=== PATIENT | female | born 1990 | race Caucasian/White ===

== ENCOUNTER 2017-07-31 14:50 | Inpatient (IN) | payer OTHER ==
[2017-07-31 16:22] VITALS: BMI 21.2
--- NOTE | 2017-07-31 18:51 | HP ---
COWS - Scale Resting Pulse: 2= [place] 101-120 Sweatin=Flushed/Facial Moisture Restless Observation: 1= Difficult to Sit Still Pupil Size: 1= Pupils >than Normal Bone or Joint Aches: 2= Severe Diffuse Aches Runny Nose/ Eye Tearin= Runny Nose/Eyes GI Upset > 30mins: 1= Stomach Cramp Tremor Observation: 2= Slight Tremor Visible Yawning Observation: 1= 1-2x During Session Anxiety or Irritability: 1=Feels Anxious/Irritable Goose Flesh Skin: 3=Piloerection COWS Score: 18 CIWA Score - CIWA Score Nausea/Vomitin Muscle Tremors: 2 Anxiety: 2 Agitation: 0-Normal Activity Paroxysmal Sweats: 1-Minimal Palms Moist Orientation: 1-Uncertain about Date Tacttile Disturbances: 2-Mild Itch/Numbness/Burn Auditory Disturbances: 1-Very Mild Visual Disturbances: 1-Very Mild Sensitivity Headache: 2-Mild CIWA-Ar Total Score: 14 Admission ROS S - HPI Chief Complaint: WITHDRAWAL SYMPTOMS Allergies/Adverse Reactions: Allergies Allergy/AdvReac Type Severity Reaction Status Date / Time egg Allergy Severe Hives Verified 07/31/17 16:53 Fish Containing Products Allergy Unknown Swelling Verified 07/31/17 16:53 [Fish Product Derivatives] lactose AdvReac Severe diarrhea Verified 07/31/17 17:19 mayonnaise Allergy Severe Hives Uncoded 07/31/17 17:19 NKDA Allergy Uncoded 07/31/17 16:53 History of Present Illness: 27 Y.O. WOMAN WITH AN EXTENSIVE HISTORY OF OPIOID ALCOHOL DEPENDENCE IS HERE SEEKING DETOX SERVICES. REPORTS SHE SOUGHT DETOX EARLIER THIS YEAR AT ANOTHER FACILITY. REPORTS HAVING A HISTORY OF 2 YEAR PERIOD OF BEING CLEAN. Exam Limitations: No Limitations - Ebola screening Have you traveled outside of the country in the last 21 days: No Have you had contact with anyone from an Ebola affected area: No Have you been sick,other than usual withdrawal symptoms: No Do you have a fever: No - Review of Systems Constitutional: Chills, Diaphoresis, Loss of Appetite, Unintentional Wgt. Loss EENT: reports: Tearing, Nose Congestion Respiratory: reports: Shortness of Breath Cardiac: reports: Lightheadedness GI: reports: No Symptoms Reported : reports: No Symptoms Reported Musculoskeletal: reports: Back Pain, Neck Pain Integumentary: reports: Other (ACNE) Neuro: reports: Headache, Numbness, Tingling Endocrine: reports: No Symptoms Reported Hematology: reports: No Symptoms Reported Psychiatric: reports: Anxious, Depressed Other Systems: Reviewed and Negative Patient History - Patient Medical History Hx Anemia: No Hx Asthma: No Hx Chronic Obstructive Pulmonary Disease (COPD): No Hx Cancer: No Hx Cardiac Disorders: No Hx Congestive Heart Failure: No Hx Hypertension: No Hx Hypercholesterolemia: No Hx Pacemaker: No HX Cerebrovascular Accident: No Hx Seizures: Yes (alcohol related x2-last episode was in 2015) Hx Dementia: No Hx Diabetes: No Hx Gastrointestinal Disorders: Yes (acid reflux) Hx Liver Disease: No Hx Genitourinary Disorders: No Hx Sexually Transmitted Disorders: No Hx Renal Disease (ESRD): No Hx Thyroid Disease: No Hx Human Immunodeficiency Virus (HIV): No Hx Hepatitis C: No Hx Depression: Yes Hx Suicide Attempt: No Hx Bipolar Disorder: No Hx Schizophrenia: No - Patient Surgical History Past Surgical History: No Hx Neurologic Surgery: No Hx Cataract Extraction: No Hx Cardiac Surgery: No Hx Lung Surgery: No Hx Breast Surgery: No Hx Breast Biopsy: No Hx Abdominal Surgery: No Hx Appendectomy: No Hx Cholecystectomy: No Hx Genitourinary Surgery: No Hx Section: Yes (2010 X1) Hx Orthopedic Surgery: No Anesthesia Reaction: No - PPD History Previous Implant?: Yes Documented Results: Negative w/proof Implanted On Prior R Admission?: Yes Date: 11/22/15 Results: 0 mm PPD to be Administered?: Yes - Reproductive History Patient is a Female of Child Bearing Age (11 -55 yrs old): Yes Last Menstrual Period: 03/26/16 Patient : No - Smoking Cessation Smoking history: Current every day smoker Have you smoked in the past 12 months: Yes Aproximately how many cigarettes per day: 40 Hx Chewing Tobacco Use: No Initiated information on smoking cessation: Yes 'Breaking Loose' booklet given: 07/31/17 - Substance & Tx. History Hx Alcohol Use: Yes Hx Substance Use: Yes Substance Use Type: Alcohol, Heroin, Marijuana Hx Substance Use Treatment: Yes (DETOX: 08/2016; REHAB: DOES NOT RECAL ) - Substances Abused Heroin Route: Injection Frequency: Daily Amount used: 20-25 bags Age of first use: 20 Date of Last Use: 07/30/17 Alcohol-whisky/beer Route: Oral Frequency: Daily Amount used: 1-2 pts./1-2 6 pks. Age of first use: 7 Date of Last Use: 07/30/17 Marijuana Route: Smoking Frequency: 1-2 times per week Amount used: $20-40 Age of first use: 13 Date of Last Use: 07/29/17 Family Disease History - Family Disease History Family Disease History: Diabetes: Father (HTN,LUNGS,ALCOHOL & COCAINE), Heart Disease: Father, CA: Father, Other: Father Admission Physical Exam [facility] - Vital Signs Vital Signs: Vital Signs - 24 hr 07/31/17 16:16 Temperature 97.9 F Pulse Rate 110 H Respiratory 18 Rate Blood Pressure 113/77 - Physical General Appearance: Yes: Disheveled, Tremorous, Irritable, Sweating, Anxious HEENTM: Yes: Hearing grossly Normal, Normal ENT Inspection, Normocephalic, Normal Voice Respiratory: Yes: Chest Non-Tender, Lungs Clear, Normal Breath Sounds, No Respiratory Distress, No Accessory Muscle Use Neck: Yes: No masses,lesions,Nodules, Trachea in good position Breast: Yes: Breast Exam Deferred Cardiology: Yes: Regular Rhythm, Tachycardia Abdominal: Yes: Normal Bowel Sounds, Non Tender Genitourinary: Yes: Within Normal Limits Back: Yes: Normal Inspection Musculoskeletal: Yes: full range of Motion Extremities: Yes: Normal Capillary Refill, Normal Inspection, Normal Range of Motion, Non-Tender Neurological: Yes: Fully Oriented, Alert, Normal Mood/Affect, Normal Response Integumentary: Yes: Dry, Warm, Track Diaz, Other (ACNE SCARS) Lymphatic: Yes: Within Normal Limits - Diagnostic (1) Alcohol dependence with uncomplicated withdrawal Current Visit: Yes Status: Chronic (2) Cannabis dependence Current Visit: Yes Status: Chronic (3) Cocaine dependence, uncomplicated Current Visit: Yes Status: Chronic (4) Nicotine dependence Current Visit: Yes Status: Chronic Qualifiers: Nicotine product type: cigarettes Substance use status: uncomplicated Qualified Code(s): F17.210 - Nicotine dependence, cigarettes, uncomplicated (5) Opioid dependence with withdrawal Current Visit: Yes Status: Chronic Cleared for Admission [facility] - Detox or Rehab [facility] Level of Care: Medically Managed Detox Regimen/Protocol: Methadone/Librium [facility] Breath Alcohol Content Breath Alcohol Content: 0 Urine Pregancy Test - Result Urine Test Results: Negative- NO Line Present Urine Drug Screen - Results Drug Screen Negative: No Urine Drug Screen Results: THC-Marijuana, PATTI-Cocaine, OPI-Opiates, MTD- Methadone, OXY-Oxycodone
[2017-07-31] MEDS ORDERED: P-EPHED 60MG/TRIPROLIDI 2.5MG TABLET PO PRN (19:32)
[2017-07-31] MEDS ORDERED: LOPERAMIDE HCL 2 MG CAPSULE PO PRN (19:32)
[2017-07-31] MEDS ORDERED: MENTHOL/PHENOL 1 EACH UD MM PRN (19:32)
[2017-07-31] MEDS ORDERED: METHADONE HCL 10 MG TABLET (FOR DETOX USE ONLY) PO ONE ×2 (19:32→23:00)
[2017-07-31] MEDS ORDERED: chlordiazePOXIDE HCL 25 MG CAPSULE PO ONE (19:32)
[2017-07-31] MEDS ORDERED: ACETAMINOPHEN 325 MG TABLET (FP) PO PRN (19:32)
[2017-07-31] MEDS ORDERED: guaiFENesin/D-METHORPHAN HB 10 ML UNIT-DOSE CUPS PO PRN (19:32)
[2017-07-31] MEDS ORDERED: MAGNESIUM CITRATE 300 ML BOTTLE PO PRN (19:32)
[2017-07-31] MEDS ORDERED: chlordiazePOXIDE HCL 25 MG CAPSULE PO PRN (19:32)
[2017-07-31] MEDS ORDERED: MAGNESIUM HYDROX 2400MG/30ML ORAL SUSPENSION 30 ML CUP PO PRN (19:32)
[2017-07-31] MEDS ORDERED: MAG HYDROX/AL HYDROX/SIMETH 30 ML UNIT-DOSE CUP PO PRN (19:32)
[2017-07-31] MEDS: NICOTINE POLACRILEX 4 MG GUM BC PRN ×2 (20:03→22:40)
[2017-07-31 21:57] LABS: URINE APPEARANCE TURBID; URINE BILIRUBIN NEGATIVE (NEGATIVE); URINE BLOOD NEGATIVE (NEGATIVE); URINE COLOR AMBER; URINE GLUCOSE (UA) NEGATIVE (NEGATIVE); URINE KETONE TRACE (NEGATIVE); URINE LEUK ESTERASE TRACE (NEGATIVE); URINE NITRITE NEGATIVE (NEGATIVE); URINE UROBILINOGEN 4.0 E.U/dl mg/dL (0.2-1.0)
[2017-07-31 22:02] LABS: URINE PROTEIN 1+ (NEGATIVE)
[2017-07-31 22:05] LABS: CALCIUM OXALATE CRYSTALS MODERATE /hpf (NONE SEEN); URINE BACTERIA MODERATE /hpf (NONE SEEN); URINE MUCUS MANY; URINE RBC 4 /hpf (0-3); URINE WBC 31 /hpf (3-5)
[2017-07-31] MEDS: chlordiazePOXIDE HCL 25 MG CAPSULE PO SCH (22:37)
[2017-07-31] MEDS: THIAMINE HCL 100 MG TABLET (FP) PO SCH (22:37)
[2017-08-01] MEDS: chlordiazePOXIDE HCL 25 MG CAPSULE PO SCH ×4 (06:24→22:38)
[2017-08-01] MEDS ORDERED: METHADONE HCL 10 MG TABLET (FOR DETOX USE ONLY) PO SCH (10:00)
--- NOTE | 2017-08-01 10:41 | PN ---
S CIWA - CIWA Score Nausea/Vomitin Muscle Tremors: 3 Anxiety: 3 Agitation: 4-Moderately Restless Paroxysmal Sweats: 3 Orientation: 0-Oriented Tacttile Disturbances: 2-Mild Itch/Numbness/Burn Auditory Disturbances: 0-None Visual Disturbances: 0-None Headache: 1-Very Mild CIWA-Ar Total Score: 19 BHS COWS - Scale Resting Pulse: 2= [place] 101-120 Sweatin=Flushed/Facial Moisture Restless Observation: 3= Extraneous Movement Pupil Size: 1= Pupils >than Normal Bone or Joint Aches: 1= Mild Discomfort Runny Nose/ Eye Tearin= Nasal Congestion GI Upset > 30mins: 2= Nausea/Diarrhea Tremor Observation of Outstretched Hands: 2= Slight Tremor Visible Yawning Observation: 1= 1-2x During Session Anxiety or Irritability: 2=Irritable/Anxious Goose Flesh Skin: 0=Smooth Skin COWS Score: 17 S Progress Note (SOAP) Subjective: withdrawal symptoms Objective: 08/01/17 10:44 Last Vital Signs Temp Pulse Resp BP Pulse Ox 98.2 F 101 H 20 97/61 08/01/17 10:00 08/01/17 10:00 08/01/17 10:00 08/01/17 10:00 08/01/17 10:44 Laboratory Last Values Urine Color Caitlin 07/31/17 21:00 Urine Appearance Turbid 07/31/17 21:00 Urine pH 5.0 (5.0-8.0) 07/31/17 21:00 Ur Specific Gilbert 1.028 (1.001-1.035) 07/31/17 21:00 Urine Protein 1+ (NEGATIVE) H 07/31/17 21:00 Urine Glucose (UA) Negative (NEGATIVE) 07/31/17 21:00 Urine Ketones Trace (NEGATIVE) H 07/31/17 21:00 Urine Blood Negative (NEGATIVE) 07/31/17 21:00 Urine Nitrite Negative (NEGATIVE) 07/31/17 21:00 Urine Bilirubin Negative (NEGATIVE) 07/31/17 21:00 Urine Urobilinogen 4.0 e.u/dl mg/dL (0.2-1.0) H 07/31/17 21:00 Urine WBC (Auto) 31 /hpf (3-5) 07/31/17 21:00 Urine RBC (Auto) 4 /hpf (0-3) 07/31/17 21:00 Ur Epithelial Cells Many /HPF (FEW) 07/31/17 21:00 Calcium Oxalate Crystal Moderate /hpf (NONE SEEN) 07/31/17 21:00 Urine Bacteria Moderate /hpf (NONE SEEN) 07/31/17 21:00 Urine Mucus Many 07/31/17 21:00 chemistry pending Assessment: 08/01/17 10:45 Sleepy and arousable sweaty, room temp lowered states feels better than when first came Plan: continue detox
[2017-08-01 10:43] LABS: MCH 30.3 pg (25.7-33.7); MCHC 33.4 g/dl (32.0-36.0); MEAN CELL VOLUME 90.9 fl (80-96); MEAN PLT VOLUME 6.8 fl (7.5-11.1); PLATELET COUNT 297 K/MM3 (134-434); RDW 15.5 % (11.6-15.6); WHITE BLOOD COUNT 4.8 K/mm3 (4.0-10.0)
[2017-08-01] MEDS: PRENATAL VITAMINS W/ FOLIC ACID TABLET (FP) PO SCH (10:44)
[2017-08-01] MEDS: NICOTINE 21 MG/24 HOURS TOPICAL PATCH TD SCH (10:45)
[2017-08-01 11:35] LABS: ALBUMIN 3.3 g/dl (3.4-5.0); ANION GAP 6 (8-16); CALCIUM 8.8 mg/dL (8.5-10.1); CO2 29 mmol/L (21-32); CREATININE 0.6 mg/dL (0.55-1.02); GLUCOSE,RANDOM 89 mg/dL (74-106); SGOT/AST 24 U/L (15-37); SGPT/ALT 33 U/L (12-78)
[2017-08-01 11:38] LABS: ALK PHOS 92 U/L (45-117); BILIRUBIN,TOTAL 0.2 mg/dL (0.2-1.0); TOT PROT 7.4 g/dl (6.4-8.2)
[2017-08-01 12:05] LABS: HIV 1 & 2 AB NEGATIVE; HIV 1 AGp24 NEGATIVE
[2017-08-01] MEDS: IBUPROFEN 400 MG TABLET (FP) PO PRN (14:09)
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
[2017-08-01] MEDS: NICOTINE POLACRILEX 4 MG GUM BC PRN (18:04)
[2017-08-01] MEDS: MIRTAZAPINE 15 MG TABLET (FP) PO SCH (22:38)
[2017-08-01] MEDS: THIAMINE HCL 100 MG TABLET (FP) PO SCH (22:38)
[2017-08-01 23:20] LABS: URINE LEUK ESTERASE Negative (NEGATIVE)
[2017-08-02] MEDS: chlordiazePOXIDE HCL 25 MG CAPSULE PO SCH ×3 (06:44→17:33)
[2017-08-02] MEDS: PRENATAL VITAMINS W/ FOLIC ACID TABLET (FP) PO SCH (10:30)
[2017-08-02] MEDS: NICOTINE 21 MG/24 HOURS TOPICAL PATCH TD SCH (10:30)
[2017-08-02] MEDS: METHADONE HCL 5 MG TABLET (FOR DETOX USE ONLY) PO SCH (10:30)
--- NOTE | 2017-08-02 10:53 | PN ---
S CIWA - CIWA Score Nausea/Vomitin-Mild Nausea/No Vomiting Muscle Tremors: 4-Moderate,w/Arms Extend Anxiety: 4-Mod. Anxious/Guarded Agitation: 3 Paroxysmal Sweats: 1-Minimal Palms Moist Orientation: 0-Oriented Tacttile Disturbances: 0-None Auditory Disturbances: 0-None Visual Disturbances: 0-None Headache: 0-None Present CIWA-Ar Total Score: 13 BHS COWS - Scale Resting Pulse: 2= [place] 101-120 Sweatin= Chills/Flushing Restless Observation: 1= Difficult to Sit Still Pupil Size: 0= Normal to Room Light Bone or Joint Aches: 2= Severe Diffuse Aches Runny Nose/ Eye Tearin= Runny Nose/Eyes GI Upset > 30mins: 2= Nausea/Diarrhea Tremor Observation of Outstretched Hands: 2= Slight Tremor Visible Yawning Observation: 0= None Anxiety or Irritability: 2=Irritable/Anxious Goose Flesh Skin: 0=Smooth Skin COWS Score: 14 S Progress Note (SOAP) Subjective: sweat tremor body ache anxiety Objective: 08/02/17 11:06 Vital Signs Temperature 97.9 F 08/02/17 06:00 Pulse Rate 80 08/02/17 06:00 Respiratory Rate 18 08/02/17 06:00 Blood Pressure 107/62 08/02/17 06:00 O2 Sat by Pulse Oximetry (%) Laboratory Last Values WBC 4.8 K/mm3 (4.0-10.0) 08/01/17 08:00 RBC 3.58 M/mm3 (3.60-5.2) L 08/01/17 08:00 Hgb 10.9 GM/dL (10.7-15.3) D 08/01/17 08:00 Hct 32.6 % (32.4-45.2) D 08/01/17 08:00 MCV 90.9 fl (80-96) 08/01/17 08:00 MCH 30.3 pg (25.7-33.7) 08/01/17 08:00 MCHC 33.4 g/dl (32.0-36.0) 08/01/17 08:00 RDW 15.5 % (11.6-15.6) 08/01/17 08:00 Plt Count 297 K/MM3 (134-434) 08/01/17 08:00 MPV 6.8 fl (7.5-11.1) L D 08/01/17 08:00 Sodium 140 mmol/L (136-145) 08/01/17 08:00 Potassium 4.3 mmol/L (3.5-5.1) 08/01/17 08:00 Chloride 105 mmol/L (98-107) 08/01/17 08:00 Carbon Dioxide 29 mmol/L (21-32) 08/01/17 08:00 Anion Gap 6 (8-16) L 08/01/17 08:00 BUN 12 mg/dL (7-18) 08/01/17 08:00 Creatinine 0.6 mg/dL (0.55-1.02) D 08/01/17 08:00 Creat Clearance w eGFR > 60 (>60) 08/01/17 08:00 Random Glucose 89 mg/dL (74-106) 08/01/17 08:00 Calcium 8.8 mg/dL (8.5-10.1) 08/01/17 08:00 Total Bilirubin 0.2 mg/dL (0.2-1.0) D 08/01/17 08:00 AST 24 U/L (15-37) D 08/01/17 08:00 ALT 33 U/L (12-78) D 08/01/17 08:00 Alkaline Phosphatase 92 U/L (45-117) 08/01/17 08:00 Total Protein 7.4 g/dl (6.4-8.2) 08/01/17 08:00 Albumin 3.3 g/dl (3.4-5.0) L 08/01/17 08:00 Urine Color Caitlin 07/31/17 21:00 Urine Appearance Turbid 07/31/17 21:00 Urine pH 5.0 (5.0-8.0) 07/31/17 21:00 Ur Specific [place] 1.028 (1.001-1.035) 07/31/17 21:00 Urine Protein 1+ (NEGATIVE) H 07/31/17 21:00 Urine Glucose (UA) Negative (NEGATIVE) 07/31/17 21:00 Urine Ketones Trace (NEGATIVE) H 07/31/17 21:00 Urine Blood Negative (NEGATIVE) 07/31/17 21:00 Urine Nitrite Negative (NEGATIVE) 07/31/17 21:00 Urine Bilirubin Negative (NEGATIVE) 07/31/17 21:00 Urine Urobilinogen 4.0 e.u/dl mg/dL (0.2-1.0) H 07/31/17 21:00 Ur Leukocyte Esterase Negative (NEGATIVE) 07/31/17 21:00 Urine WBC (Auto) 31 /hpf (3-5) 07/31/17 21:00 Urine RBC (Auto) 4 /hpf (0-3) 07/31/17 21:00 Ur Epithelial Cells Many /HPF (FEW) 07/31/17 21:00 Calcium Oxalate Crystal Moderate /hpf (NONE SEEN) 07/31/17 21:00 Urine Bacteria Moderate /hpf (NONE SEEN) 07/31/17 21:00 Urine Mucus Many 07/31/17 21:00 RPR Titer Nonreactive (NONREACTIVE) 08/01/17 08:00 HIV 1&2 Antibody Screen Negative 08/01/17 08:00 HIV P24 Antigen Negative 08/01/17 08:00 lab noted Assessment: 08/02/17 11:07 withdrawal sx Plan: continue detox
[2017-08-02] MEDS: NICOTINE POLACRILEX 4 MG GUM BC PRN ×2 (17:33→22:24)
[2017-08-02] MEDS: THIAMINE HCL 100 MG TABLET (FP) PO SCH (22:21)
[2017-08-02] MEDS: chlordiazePOXIDE 5 MG CAPSULE PO SCH (22:21)
[2017-08-02] MEDS: hydrOXYzine PAMOATE 50 MG CAPSULE (FP) PO PRN (22:21)
[2017-08-02] MEDS: MIRTAZAPINE 15 MG TABLET (FP) PO SCH (22:21)
[2017-08-03] MEDS: chlordiazePOXIDE 5 MG CAPSULE PO SCH ×3 (06:30→17:08)
[2017-08-03] MEDS: METHADONE HCL 5 MG TABLET (FOR DETOX USE ONLY) PO SCH (10:27)
[2017-08-03] MEDS: NICOTINE 21 MG/24 HOURS TOPICAL PATCH TD SCH (10:27)
[2017-08-03] MEDS: PRENATAL VITAMINS W/ FOLIC ACID TABLET (FP) PO SCH (10:27)
--- NOTE | 2017-08-03 10:54 | PN ---
BHS Progress Note (SOAP) Subjective: sweats shakes body aches diarrhea Objective: 08/03/17 10:52 Vital Signs Temperature 98 F 08/03/17 10:43 Pulse Rate 99 H 08/03/17 10:43 Respiratory Rate 18 08/03/17 10:43 Blood Pressure 113/54 08/03/17 10:43 O2 Sat by Pulse Oximetry (%) aaox3 ambulating no acute distress Assessment: 08/03/17 10:53 withdrawal sx Plan: continue detox increase fluids flexiril prn psych ordered immodium prn
[2017-08-03] MEDS: GABAPENTIN 300 MG CAPSULE (FP) PO SCH ×2 (11:32→23:05)
[2017-08-03] MEDS: CYCLOBENZAPRINE HCL 10 MG TABLET (FP) PO PRN ×2 (11:38→23:05)
[2017-08-03] MEDS ORDERED: HYDROCORTISONE 1% TOPICAL LOTION 118 ML BOTTLE TP PRN (14:23)
--- NOTE | 2017-08-03 16:04 | PN ---
Psychiatric Progress Note Vital Signs: Vital Signs Period Temp Pulse Resp BP Sys/Hoyt Pulse Ox Last 24 Hr 96.9 F-98.8 F 82-106 16-20 106-120/54-72 Date of Session: 08/03/17 Chief Complaint:: Anxiety, agitation HPI: Patient reports anxiety and agotation, complaning not to be takiking to rehabolitation floor following detoxification protocol. During evaluation follows direstions and agrees to start medications taking prior to admission: Seroquel 100mg po bid. Zoloft 50mg poqd. Buspiron 15mg po tid. Remeron 15mg p [o qhs. After supporting psychotherapy patient mecame calm and cooperative, foolowing direstions and treatment plan Current Medications: Active Medications Generic Name Dose Route Start Last Admin Trade Name Freq PRN Reason Stop Dose Admin Acetaminophen 650 mg 07/31/17 19:32 Tylenol - PO Q4H PRN FEVER OR PAIN Al Hydroxide/Mg Hydroxide 30 ml 07/31/17 19:32 Mylanta Oral Suspension - PO Q6H PRN DYSPEPSIA Buspirone HCl 15 mg 08/03/17 16:00 Buspar - PO TID SHANDA Chlordiazepoxide HCl 15 mg 08/02/17 23:00 08/03/17 10:26 Librium - PO 08/03/17 17:01 15 mg [id number] SHANDA Administration Chlordiazepoxide HCl 10 mg 08/03/17 23:00 Librium - PO 08/04/17 17:01 [id number] SHANDA Chlordiazepoxide HCl 25 mg 07/31/17 19:32 Librium - PO 08/03/17 19:33 Q4H PRN WITHDRAWAL(CONT SUBST) Clindamycin Phosphate 1 applic 08/03/17 22:00 Cleocin 1% Topical Solution - TP BID SHANDA Cyclobenzaprine HCl 10 mg 08/03/17 10:50 08/03/17 11:38 Flexeril - PO 10 mg TID PRN Administration MUSCLE SPASMS Eucalyptus/Menthol/Phenol/Sorbitol 1 each 07/31/17 19:32 Cepastat Lozenge - MM Q4H PRN SORE THROAT Gabapentin 600 mg 08/03/17 11:00 08/03/17 11:32 Neurontin - PO 600 mg BID SHANDA Administration Guaifenesin 10 ml 07/31/17 19:32 Robitussin Dm - PO Q6H PRN COUGH Hydrocortisone 1 applic 08/03/17 14:23 Hytone 1% Lotion - TP TID PRN DRY SKIN Hydroxyzine Pamoate 50 mg 07/31/17 19:32 08/02/17 22:21 Vistaril - PO 50 mg Q4H PRN Administration AGITATION Ibuprofen 400 mg 07/31/17 19:32 08/01/17 14:09 Motrin - PO 400 mg Q6H PRN Administration SEVERE PAIN Loperamide HCl 4 mg 07/31/17 19:32 Imodium - PO Q6H PRN DIARRHEA Magnesium Citrate 300 ml 07/31/17 19:32 Citroma - PO Q48H PRN CONSTIPATION Magnesium Hydroxide 30 ml 07/31/17 19:32 Milk Of Magnesia - PO DAILY PRN CONSTIPATION Methadone HCl 5 mg 08/05/17 06:00 Dolophine - PO 08/05/17 06:01 DAILY@0600 SHANDA Methadone HCl 10 mg 08/04/17 10:00 Dolophine - PO 08/04/17 10:01 DAILY SHANDA Mirtazapine 15 mg 08/01/17 22:00 08/02/17 22:21 Remeron - PO 15 mg HS SHANDA Administration Nicotine 21 mg 08/01/17 10:00 08/03/17 10:27 Nicoderm Patch - TD 21 mg DAILY SHANDA Administration Nicotine Polacrilex 4 mg 07/31/17 19:32 08/02/17 22:24 Nicorette Gum - BC 4 mg Q2H PRN Administration NICOTINE REPLACEMENT RX Multivit/Folic Acid/Iron 1 tab 08/01/17 10:00 08/03/17 10:27 Vitamins (Sjr) - PO 1 tab DAILY SHANDA Administration Pseudoephedrine/Triprolidine 1 combo 07/31/17 19:32 Actifed - PO TID PRN NASAL CONGESTION Quetiapine Fumarate 100 mg 08/03/17 22:00 Seroquel - PO BID SHANDA Sertraline HCl 50 mg 08/03/17 16:00 Zoloft - PO DAILY SHANDA Thiamine HCl 100 mg 07/31/17 22:00 08/02/17 22:21 Vitamin B1 - PO 100 mg HS SHANDA Administration Medication(s) Change(s): Seroquel 100mg po bid. Zoloft 50mg poqd. Buspiron 15mg po tid. Remeron 15mg p[o qhs Mental Status Exam - Mental Status Exam Alert and Oriented to: Person Cognitive Function: Fair Patient Appearance: Unkempt Mood: Anxious Affect: Labile Patient Behavior: Cooperative Speech Pattern: Appropriate Voice Loudness: Normal Thought Process: Goal Oriented Thought Disorder: Being Controlled Hallucinations: Denies Suicidal Ideation: Denies Homicidal Ideation: Denies Insight/Judgement: Fair Sleep: Difficulty falling asleep Appetite: Weight loss Muscle strength/Tone: Normal Gait/Station: Normal Additional Comments: Seroquel 100mg po bid. Zoloft 50mg poqd. Buspiron 15mg po tid. Remeron 15mg p[o qhs Psychiatric Treatment Plan - Problem List (1) Alcohol dependence with uncomplicated withdrawal Current Visit: Yes (2) Cannabis dependence Current Visit: Yes (3) Cocaine dependence, uncomplicated Current Visit: Yes (4) Nicotine dependence Current Visit: Yes Qualifiers: Nicotine product type: cigarettes Substance use status: uncomplicated Qualified Code(s): F17.210 - Nicotine dependence, cigarettes, uncomplicated (5) Substance induced mood disorder Current Visit: Yes (6) Opioid dependence with withdrawal Current Visit: Yes (7) Bipolar II disorder Current Visit: No (8) Sedative, hypnotic or anxiolytic dependence with withdrawal, uncomplicated Current Visit: No Initial treatment plan: Seroquel 100mg po bid. Zoloft 50mg poqd. Buspiron 15mg po tid. Remeron 15mg p[o qhs
[2017-08-03] MEDS: SERTRALINE HCL 50 MG TABLET (FP) PO SCH (17:08)
[2017-08-03] MEDS ORDERED: CLINDAMYCIN PHOSPHATE 1% TOPICAL GEL 30 GM TUBE TP SCH (22:00)
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
[2017-08-03] MEDS: THIAMINE HCL 100 MG TABLET (FP) PO SCH (23:05)
[2017-08-03] MEDS: chlordiazePOXIDE HCL 10 MG CAPSULE PO SCH (23:05)
[2017-08-03] MEDS: QUEtiapine FUMARATE 100 MG TABLET (FP) PO SCH (23:05)
[2017-08-03] MEDS: MIRTAZAPINE 15 MG TABLET (FP) PO SCH (23:05)
[2017-08-03] MEDS: CLINDAMYCIN PHOSPHATE 1% TOPICAL SOLUTION 30 ML BOTTLE TP SCH (23:06)
--- NOTE | 2017-08-04 01:57 | EKG ---
Test Reason : Blood Pressure : / mmHG Vent. Rate : 099 BPM Atrial Rate : 099 BPM P-R Int : 120 ms QRS Dur : 076 ms QT Int : 340 ms P-R-T Axes : 054 063 033 degrees QTc Int : 436 ms NORMAL SINUS RHYTHM NORMAL ECG NO PREVIOUS ECGS AVAILABLE Confirmed by KAJAL LOCKWOOD MD ([id number]) on 08/04/2017 1:57:28 AM Referred By: Confirmed By:KAJAL LOCKWOOD MD
[2017-08-04] MEDS: chlordiazePOXIDE HCL 10 MG CAPSULE PO SCH ×3 (06:00→17:58)
[2017-08-04] MEDS ORDERED: METHADONE HCL 10 MG TABLET (FOR DETOX USE ONLY) PO SCH (10:00)
--- NOTE | 2017-08-04 10:53 | PN ---
[facility] Progress Note (SOAP) Subjective: body aches to wrist and ankle sweats Objective: 08/04/17 10:52 Vital Signs Temperature 98.1 F 08/04/17 10:27 Pulse Rate 83 08/04/17 10:27 Respiratory Rate 18 08/04/17 10:27 Blood Pressure 117/62 08/04/17 10:27 O2 Sat by Pulse Oximetry (%) aaox3 lying in bed no acute distress Assessment: 08/04/17 10:52 withdrawal sx Plan: pending x-ray results continue detox d/c in am
[2017-08-04] MEDS: CLINDAMYCIN PHOSPHATE 1% TOPICAL SOLUTION 30 ML BOTTLE TP SCH ×2 (11:44→22:40)
[2017-08-04] MEDS: PRENATAL VITAMINS W/ FOLIC ACID TABLET (FP) PO SCH (11:45)
[2017-08-04] MEDS: GABAPENTIN 300 MG CAPSULE (FP) PO SCH ×2 (11:45→22:40)
[2017-08-04] MEDS: SERTRALINE HCL 50 MG TABLET (FP) PO SCH (11:46)
[2017-08-04] MEDS: QUEtiapine FUMARATE 100 MG TABLET (FP) PO SCH ×2 (11:46→22:40)
[2017-08-04] MEDS: NICOTINE 21 MG/24 HOURS TOPICAL PATCH TD SCH (11:47)
[2017-08-04] MEDS: NICOTINE POLACRILEX 4 MG GUM BC PRN ×2 (13:49→18:22)
[2017-08-04] MEDS: CYCLOBENZAPRINE HCL 10 MG TABLET (FP) PO PRN ×2 (15:55→22:40)
[2017-08-04] MEDS: hydrOXYzine PAMOATE 50 MG CAPSULE (FP) PO PRN (15:57)
[2017-08-04] MEDS: MIRTAZAPINE 15 MG TABLET (FP) PO SCH (22:40)
[2017-08-04] MEDS: THIAMINE HCL 100 MG TABLET (FP) PO SCH (22:40)
[2017-08-05] MEDS ORDERED: METHADONE HCL 5 MG TABLET (FOR DETOX USE ONLY) PO SCH (06:00)
--- NOTE | 2017-08-05 08:13 | PN ---
[facility] Progress Note Note: Psychiatry Attending's note : Met with patient on 08/04/17. Issue discussed (counselor's request) : Date of last suicide attempt. According to Ms Manriquez, last made a suicide attempt in August 2015.
--- NOTE | 2017-08-05 08:53 | DS ---
[facility] Detox Discharge Summary Admission Date: 07/31/17 Discharge Date: 08/05/17 - History Present History: Alcohol Dependence, Cannabis Dependence, Cocaine Dependence, Opioid Dependence - Physical Exam Results Vital Signs: Vital Signs Temperature 97.4 F L 08/05/17 06:15 Pulse Rate 86 08/05/17 06:15 Respiratory Rate 18 08/05/17 06:15 Blood Pressure 100/50 08/05/17 06:15 O2 Sat by Pulse Oximetry (%) - Treatment Hospital Course: Detox Protocol Followed, Detoxed Safely, Responded well, Discharged Condition Good, Rehab Referral Accepted - Medication Discharge Medications: Ambulatory Orders Gabapentin [Neurontin -] 600 mg PO BID #60 capsule 11/20/15 Mirtazapine [Remeron -] 30 mg PO HS 07/31/17 Mirtazapine [Remeron -] 15 mg PO DAILY #30 tablet 08/01/17 Buspirone HCl [Buspar -] 15 mg PO TID #90 tablet 08/03/17 Mirtazapine [Remeron -] 15 mg PO HS #30 tablet 08/03/17 Quetiapine Fumarate [Seroquel] 100 mg PO BID #60 tablet 08/03/17 Sertraline HCl [Zoloft -] 50 mg PO DAILY #30 tablet 08/03/17 - Diagnosis (1) Alcohol dependence with uncomplicated withdrawal Current Visit: Yes Status: Chronic (2) Cannabis dependence Current Visit: Yes Status: Chronic (3) Cocaine dependence, uncomplicated Current Visit: Yes Status: Acute (4) Insomnia Current Visit: Yes Status: Acute (5) Nicotine dependence Current Visit: Yes Status: Chronic Qualifiers: Nicotine product type: cigarettes Substance use status: uncomplicated Qualified Code(s): F17.210 - Nicotine dependence, cigarettes, uncomplicated (6) Substance induced mood disorder Current Visit: Yes Status: Acute (7) Opioid dependence with withdrawal Current Visit: Yes Status: Chronic (8) Bipolar II disorder Current Visit: No Status: Acute (9) Sedative, hypnotic or anxiolytic dependence with withdrawal, uncomplicated Current Visit: Yes Status: Chronic (10) Bipolar disorder Current Visit: No Status: Chronic - AMA Did Patient Leave Against Medical Advice: No
[2017-08-05] MEDS: PRENATAL VITAMINS W/ FOLIC ACID TABLET (FP) PO SCH (10:40)
[2017-08-05] MEDS: QUEtiapine FUMARATE 100 MG TABLET (FP) PO SCH (10:40)
[2017-08-05] MEDS: GABAPENTIN 300 MG CAPSULE (FP) PO SCH (10:40)
[2017-08-05] MEDS: SERTRALINE HCL 50 MG TABLET (FP) PO SCH (10:40)
[2017-08-05] MEDS: NICOTINE 21 MG/24 HOURS TOPICAL PATCH TD SCH (10:43)
[2017-08-05] MEDS: NICOTINE POLACRILEX 4 MG GUM BC PRN ×2 (10:44→12:59)
[2017-08-05] MEDS: CLINDAMYCIN PHOSPHATE 1% TOPICAL SOLUTION 30 ML BOTTLE TP SCH (12:11)
[2017-08-05] MEDS: IBUPROFEN 400 MG TABLET (FP) PO PRN (12:56)
[2017-08-05 13:18] VITALS: BP 124/65; PULSE 126; TEMP 97.2
== END 2017-08-05 01:59 | disposition other institution (70) | DRG 773 ==
LOC: YASAS 14:50 → Y6N 17:41
PROVIDERS: ADMIT Internal Medicine; ATTEND Internal Medicine
PROC: HZ2ZZZZ Detoxification Services for Substance Abuse Treatment (ICD-10-PCS; principal; 2017-07-31)
DX: F11.23 Opioid dependence with withdrawal (principal); F13.230 Sedative, hypnotic or anxiolytic dependence with withdrawal, uncomplicated; F10.230 Alcohol dependence with withdrawal, uncomplicated; F14.20 Cocaine dependence, uncomplicated; F12.20 Cannabis dependence, uncomplicated; F17.210 Nicotine dependence, cigarettes, uncomplicated; F19.24 Other psychoactive substance dependence with psychoactive substance-induced mood disorder; R00.0 Tachycardia, unspecified; G47.00 Insomnia, unspecified; K21.9 Gastro-esophageal reflux disease without esophagitis; Z91.011 Allergy to milk products; Z91.012 Allergy to eggs; Z91.013 Allergy to seafood; Z86.69 Personal history of other diseases of the nervous system and sense organs; S96.911A Strain of unspecified muscle and tendon at ankle and foot level, right foot, initial encounter; S66.911A Strain of unspecified muscle, fascia and tendon at wrist and hand level, right hand, initial encounter; X58.XXXA Exposure to other specified factors, initial encounter; Y93.9 Activity, unspecified; Y92.239 Unspecified place in hospital as the place of occurrence of the external cause; Z59.0 Homelessness
CPT/HCPCS: 36415; 73110-TC-RT; 73610-TC-RT; 80053; 81003; 81015; 85027; 86593; 87389; 93005; 93010

== ENCOUNTER 2017-08-05 13:38 | Inpatient (IN) | payer OTHER ==
[2017-08-05] MEDS ORDERED: MENTHOL/PHENOL 1 EACH UD MM PRN (14:56)
[2017-08-05] MEDS ORDERED: guaiFENesin/D-METHORPHAN HB 10 ML UNIT-DOSE CUPS PO PRN (14:56)
[2017-08-05] MEDS ORDERED: P-EPHED 60MG/TRIPROLIDI 2.5MG TABLET PO PRN (14:56)
[2017-08-05] MEDS ORDERED: LOPERAMIDE HCL 2 MG CAPSULE PO PRN (14:56)
[2017-08-05] MEDS ORDERED: MAGNESIUM CITRATE 300 ML BOTTLE PO PRN (14:56)
[2017-08-05] MEDS ORDERED: MAGNESIUM HYDROX 2400MG/30ML ORAL SUSPENSION 30 ML CUP PO PRN (14:56)
[2017-08-05] MEDS ORDERED: MAG HYDROX/AL HYDROX/SIMETH 30 ML UNIT-DOSE CUP PO PRN (14:56)
[2017-08-05] MEDS ORDERED: ACETAMINOPHEN 325 MG TABLET (FP) PO PRN (14:56)
[2017-08-05] MEDS ORDERED: HYDROCORTISONE 1% TOPICAL CREAM 30 GM TUBE TP PRN (14:59)
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
[2017-08-05 15:26] VITALS: BMI 23.2
--- NOTE | 2017-08-05 16:14 | HP ---
[facility] Rehab Assess/Revision - Admission History Admitted to Rehab from: [facility] [place] Date of Admission to Rehab: 08/05/17 - Vital signs Vital Signs: Vital Signs Period Temp Pulse Resp BP Sys/Hoyt Pulse Ox Last 24 Hr 98.1 F-98.1 F 112-112 16-16 106-106/68-68 - Findings Detox History & Physical reviewed: Yes Concur with findings: Yes Comments/Additional Findings: transferred from detox to rehab admission as per protocol
[2017-08-05] MEDS: QUEtiapine FUMARATE 100 MG TABLET (FP) PO SCH (21:34)
[2017-08-05] MEDS: MIRTAZAPINE 30 MG TABLET (FP) PO SCH (21:34)
[2017-08-05] MEDS: GABAPENTIN 300 MG CAPSULE (FP) PO SCH (21:34)
[2017-08-05] MEDS: THIAMINE HCL 100 MG TABLET (FP) PO SCH (21:34)
[2017-08-05] MEDS: IBUPROFEN 400 MG TABLET (FP) PO PRN (21:40)
[2017-08-05] MEDS: NICOTINE POLACRILEX 4 MG GUM BUC PRN (21:41)
[2017-08-06 07:21] VITALS: BP 104/70; PULSE 100; TEMP 99.3
[2017-08-06] MEDS ORDERED: SERTRALINE HCL 50 MG TABLET (FP) PO SCH (10:00)
[2017-08-06] MEDS ORDERED: NICOTINE 21 MG/24 HOURS TOPICAL PATCH TD SCH (10:00)
[2017-08-06] MEDS ORDERED: PRENATAL VITAMINS W/ FOLIC ACID TABLET (FP) PO SCH (10:00)
[2017-08-06] MEDS: GABAPENTIN 300 MG CAPSULE (FP) PO SCH ×2 (11:45→21:45)
[2017-08-06] MEDS: QUEtiapine FUMARATE 100 MG TABLET (FP) PO SCH ×2 (11:45→21:45)
[2017-08-06] MEDS: NICOTINE POLACRILEX 4 MG GUM BUC PRN ×2 (11:47→21:47)
[2017-08-06] MEDS: IBUPROFEN 400 MG TABLET (FP) PO PRN (11:49)
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
[2017-08-06] MEDS ORDERED: PANTOPRAZOLE 40 MG TABLET (FP) PO SCH (15:15)
[2017-08-06] MEDS: CYCLOBENZAPRINE HCL 10 MG TABLET (FP) PO SCH ×2 (15:52→21:45)
[2017-08-06] MEDS: THIAMINE HCL 100 MG TABLET (FP) PO SCH (21:45)
[2017-08-06] MEDS: MIRTAZAPINE 30 MG TABLET (FP) PO SCH (21:45)
[2017-08-06] MEDS ORDERED: NAPROXEN 500 MG TABLET (FP) PO SCH (22:00)
[2017-08-06] MEDS ORDERED: CEPHALEXIN MONOHYDRATE 500 MG CAPSULE (UD) PO SCH (22:00)
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
[2017-08-07] MEDS ORDERED: VANCOMYCIN 1,000 MG in DEXTROSE 5%-WATER - 250 ML IVPB SCH (11:45)
[2017-08-07] MEDS ORDERED: PIPERACILLIN/TAZOB 3.375 GM/50 ML PRE-DOCKED IVPB SCH (12:00)
== END 2017-08-06 23:00 | disposition short-term general hospital (02) | DRG 773 ==
LOC: YASAS 13:38 → Y3E 13:40
PROVIDERS: ADMIT Psychiatry & Neurology Psychiatry; ATTEND Psychiatry & Neurology Psychiatry
PROC: HZ2ZZZZ Detoxification Services for Substance Abuse Treatment (ICD-10-PCS; principal; 2017-08-05)
DX: F11.20 Opioid dependence, uncomplicated (principal); F13.20 Sedative, hypnotic or anxiolytic dependence, uncomplicated; F10.20 Alcohol dependence, uncomplicated; F14.20 Cocaine dependence, uncomplicated; F12.20 Cannabis dependence, uncomplicated; F17.210 Nicotine dependence, cigarettes, uncomplicated; F31.81 Bipolar II disorder; F43.10 Post-traumatic stress disorder, unspecified; L03.113 Cellulitis of right upper limb; Z59.0 Homelessness

== ENCOUNTER 2017-08-06 23:09 | Inpatient (IN) | payer OTHER ==
[2017-08-06] MEDS ORDERED: PIPERACIL/TAZOB 3.375 GM 3.375 GM/50 ML PREMIX IVPB ONE (23:28)
[2017-08-06] MEDS ORDERED: VANCOMYCIN 1,000 MG in DEXTROSE 5%-WATER - 250 ML IVPB ONE (23:28)
--- NOTE | 2017-08-06 23:37 | PDOC ---
History of Present Illness - General Stated Complaint: SWELLING OF THE RIGHT HAND Time Seen by Provider: 08/06/17 23:13 History Source: Patient Exam Limitations: No Limitations - History of Present Illness Initial Comments: 08/06/17 23:31 27yo Female patient w/ PmHx: Hep C, Heroin Abuse, Amenorrhea, presents to ED from [facility] for evaluation of right hand swelling. Patient states symptoms began 3-4 days ago while at detox. She reports last heroin use 1.5 weeks ago. She denies CP, Abd pain, n/v/d, fever, cough, congestion, or any other complaints at this time. LNMP: 2013. PCP- None. Occurred: reports: last week Severity: reports: severe Upper Extremity Pain Location: right: hand Method of Injury: denies: unknown, assault, burn, direct blow, fell, incised, motor vehicle accident, sports injury, twisted, other Modifying Factors: improves with: pain medication Associated Symptoms: None Extremity Pain Location - Extremity Pain Location Extremity Pain Locations: right: hand Past History - Travel Traveled outside of the country in the last 30 days: No Close contact w/someone who was outside of country & ill: No - Past Medical History Allergies/Adverse Reactions: Allergies Allergy/AdvReac Type Severity Reaction Status Date / Time egg Allergy Severe Hives Verified 08/06/17 23:45 Fish Containing Products Allergy Unknown Swelling Verified 08/06/17 23:45 [Fish Product Derivatives] cheese Allergy Verified 08/06/17 23:45 lactose AdvReac Severe diarrhea Verified 08/06/17 23:45 mayonnaise Allergy Severe Hives Uncoded 08/06/17 23:45 NKDA Allergy Uncoded 08/06/17 23:45 Home Medications: Ambulatory Orders Gabapentin [Neurontin -] 600 mg PO BID #60 capsule 11/20/15 Mirtazapine [Remeron -] 15 mg PO HS 07/31/17 Buspirone HCl [Buspar -] 15 mg PO TID #90 tablet 08/03/17 Quetiapine Fumarate [Seroquel] 100 mg PO BID #60 tablet 08/03/17 Sertraline HCl [Zoloft -] 50 mg PO DAILY #30 tablet 08/03/17 Anemia: No Asthma: No Cancer: No Cardiac Disorders: No CVA: No COPD: No CHF: No Dementia: No Diabetes: No GI Disorders: No Disorders: No HTN: No Hypercholesterolemia: No Kidney Stones: Yes Liver Disease: No Seizures: Yes (Alcohol related (drugs)) Thyroid Disease: No - Surgical History Abdominal Surgery: No Appendectomy: No Cardiac Surgery: No Cholecystectomy: No Lung Surgery: No Neurologic Surgery: No Orthopedic Surgery: No - Reproductive History PID: No - Suicide/Smoking/Psychosocial Hx Smoking History: Current every day smoker Have you smoked in the past 12 months: Yes Number of Cigarettes Smoked Daily: 40 'Breaking Loose' booklet given: 07/31/17 Hx Alcohol Use: Yes (drinking since 7 yo,1-2 pints of whiskey) Drug/Substance Use Hx: Yes (heroin since 20 yo,,marijuana since 13 yo,crack on/ off,Xanax 2016) Substance Use Type: Alcohol, Cocaine, Heroin, Marijuana, Tranquilizers Hx Substance Use Treatment: Yes (completed [facility] 28 days 2014 or , longest absinence 2 years) Review of Systems - Review of Systems Able to Perform ROS?: Yes Is the patient limited Luxembourgish proficient: No Integumentary: Yes: Erythema, Other (Swelling) All Other Systems: Reviewed and Negative *Physical Exam - Physical Exam General Appearance: Yes: Nourished, Appropriately Dressed, Mild Distress. No: Apparent Distress, Moderate Distress, Severe Distress Respiratory/Chest: positive: Lungs Clear, Normal Breath Sounds. negative: Chest Tender, Respiratory Distress, Accessory Muscle Use, Labored Respiration, Rapid RR, Decreased Breath Sounds, Paradoxal Breathing, Rhonchi, Stridor, Wheezing Cardiovascular: positive: Regular Rhythm, Regular Rate Musculoskeletal: positive: Normal Inspection. negative: CVA Tenderness, Decreased Range of Motion, Vertebral Tenderness Extremity: positive: Normal Capillary Refill, Tender (Right Hand), Swelling, Erythema, Inflammation. negative: Normal Inspection, Normal Range of Motion Integumentary: positive: Normal Color, Dry, Warm, Erythema, Swelling Neurologic: positive: packager head II-XII NML intact, Fully Oriented, Alert, Normal Mood/ Affect, Normal Response, Motor Strength 5/5 ED Treatment Course - LABORATORY CBC & Chemistry Diagram: 08/07/17 00:20 08/07/17 00:20 *DC/Admit/Observation/Transfer Diagnosis at time of Disposition: Cellulitis of hand, right Opioid dependence Qualifiers: Substance use status: uncomplicated Qualified Code(s): F11.20 - Opioid dependence, uncomplicated - Discharge Dispostion Condition at time of disposition: Fair Admit: Yes - Referrals Referrals: Umm Lainez MD [Primary Care Provider] - - Patient Instructions - Post Discharge Activity
[2017-08-06] MEDS ORDERED: ACETAMINOPHEN 1000 MG/100 ML VIAL (NON FORMULARY) IVPB ONE (23:42)
[2017-08-06] MEDS ORDERED: METHOCARBAMOL 500 MG TABLET PO ONE (23:42)
--- NOTE | 2017-08-06 23:44 | PDOC ---
ED Treatment Course - LABORATORY CBC & Chemistry Diagram: 08/09/17 06:50 08/09/17 06:50 Medical Decision Making - Medical Decision Making 08/06/17 23:43 agree with care from REENA Aguilar *DC/Admit/Observation/Transfer Diagnosis at time of Disposition: Opioid dependence, Cellulitis of hand, right - Discharge Dispostion Disposition: AGAINST MEDICAL ADVICE Condition at time of disposition: Good - Referrals - Patient Instructions - Post Discharge Activity
[2017-08-06 23:45] VITALS: BMI 20.2
[2017-08-06] MEDS ORDERED: PIPERACILLIN/TAZOB 3.375 GM 3.375 GM in DEXTROSE 5%-WATER - 100 ML IVPB ONE (23:45)
[2017-08-07] MEDS ORDERED: METHOCARBAMOL 500 MG TABLET ONE (00:14)
[2017-08-07] MEDS ORDERED: ACETAMINOPHEN INJECTION 100 ML IVPB ONE (00:15)
[2017-08-07] MEDS ORDERED: PIPERACILLIN/TAZOB 3.375 GM 3.375 GM/50 ML BAG IVPB ONE ×2 (00:15→01:19)
[2017-08-07] MEDS ORDERED: VANCOMYCIN 1 GRAM (PRE-DOCKED) 1,000 MG/250 ML BAG IVPB ONE (00:15)
[2017-08-07 00:57] LABS: BASO % 0.9 % (0-2.0); EOS % 0.8 % (0-4.5); HEMATOCRIT 32.2 % (32.4-45.2); HEMOGLOBIN 11.1 GM/dL (10.7-15.3); LYMPH % 16.7 % (8-40); MCHC 34.5 g/dl (32.0-36.0); MEAN CELL VOLUME 89.9 fl (80-96); MEAN PLT VOLUME 7.1 fl (7.5-11.1); MONO % 8.5 % (3.8-10.2); NEUT % 73.1 % (42.8-82.8); PLATELET COUNT 265 K/MM3 (134-434); RBC 3.58 M/mm3 (3.60-5.2); RDW 15.6 % (11.6-15.6); WHITE BLOOD COUNT 8.9 K/mm3 (4.0-10.0)
[2017-08-07 01:16] LABS: ALBUMIN 3.7 g/dl (3.4-5.0); ANION GAP 8 (8-16); BLOOD UREA NITROGEN 18 mg/dL (7-18); CALCIUM 9.3 mg/dL (8.5-10.1); CHLORIDE 102 mmol/L (98-107); CO2 29 mmol/L (21-32); CREATININE 0.7 mg/dL (0.55-1.02); GLUCOSE,RANDOM 101 mg/dL (74-106); SGPT/ALT 81 U/L (12-78); SODIUM 139 mmol/L (136-145)
[2017-08-07 01:18] LABS: ALK PHOS 100 U/L (45-117); BILIRUBIN,TOTAL 0.4 mg/dL (0.2-1.0); TOT PROT 8.1 g/dl (6.4-8.2)
[2017-08-07 01:19] LABS: POTASSIUM 4.3 mmol/L (3.5-5.1); SGOT/AST 65 U/L (15-37)
[2017-08-07 02:09] LABS: URINE APPEARANCE CLOUDY; URINE BILIRUBIN NEGATIVE (NEGATIVE); URINE BLOOD NEGATIVE (NEGATIVE); URINE COLOR LTYELLOW; URINE GLUCOSE (UA) NEGATIVE (NEGATIVE); URINE KETONE NEGATIVE (NEGATIVE); URINE LEUK ESTERASE TRACE (NEGATIVE); URINE NITRITE NEGATIVE (NEGATIVE); URINE PROTEIN NEGATIVE (NEGATIVE); URINE UROBILINOGEN NEGATIVE mg/dL (0.2-1.0)
[2017-08-07 02:20] LABS: EPI CELLS MANY /HPF (FEW); URINE BACTERIA RARE /hpf (NONE SEEN)
--- NOTE | 2017-08-07 05:24 | PN ---
Teaching Attending Note Name of Resident: Adilson Spaulding ATTENDING PHYSICIAN STATEMENT I saw and evaluated the patient. I reviewed the resident's note and discussed the case with the resident. I agree with the resident's findings and plan as documented. SUBJECTIVE: 27 y/o F Patient transferred from [facility] for evaluation of right hand erythema and swelling for 4 days. Patient denies fever, chills or palpitations. OBJECTIVE: GEN: A&Ox3 HEENT: PERRLA, EOMI, MMM CVS: RRR, no M/G/R Lungs: CTA ABD: Soft, NT, ND, BS+ Ext: R hand erythema and swelling, tender to palpation, nl rom skin: no abscess, laceration or petechia CBCD WBC 8.9 K/mm3 (4.0-10.0) D 08/07/17 00:20 RBC 3.58 M/mm3 (3.60-5.2) L 08/07/17 00:20 Hgb 11.1 GM/dL (10.7-15.3) 08/07/17 00:20 Hct 32.2 % (32.4-45.2) L 08/07/17 00:20 MCV 89.9 fl (80-96) 08/07/17 00:20 MCHC 34.5 g/dl (32.0-36.0) 08/07/17 00:20 RDW 15.6 % (11.6-15.6) 08/07/17 00:20 Plt Count 265 K/MM3 (134-434) 08/07/17 00:20 MPV 7.1 fl (7.5-11.1) L 08/07/17 00:20 CMP Sodium 139 mmol/L (136-145) 08/07/17 00:20 Potassium 4.3 mmol/L (3.5-5.1) 08/07/17 00:20 Chloride 102 mmol/L (98-107) 08/07/17 00:20 Carbon Dioxide 29 mmol/L (21-32) 08/07/17 00:20 Anion Gap 8 (8-16) 08/07/17 00:20 BUN 18 mg/dL (7-18) D 08/07/17 00:20 Creatinine 0.7 mg/dL (0.55-1.02) 08/07/17 00:20 Creat Clearance w eGFR > 60 (>60) 08/07/17 00:20 Calcium 9.3 mg/dL (8.5-10.1) 08/07/17 00:20 Total Bilirubin 0.4 mg/dL (0.2-1.0) D 08/07/17 00:20 AST 65 U/L (15-37) H D 08/07/17 00:20 ALT 81 U/L (12-78) H D 08/07/17 00:20 Alkaline Phosphatase 100 U/L (45-117) 08/07/17 00:20 Total Protein 8.1 g/dl (6.4-8.2) 08/07/17 00:20 Albumin 3.7 g/dl (3.4-5.0) 08/07/17 00:20 ASSESSMENT AND PLAN: Hand Cellulitis Vancomycin and Zosyn Follow blood cultures ID consult tylenol prn Depression continue home medications Rehab consult DVT prophylaxis
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
[2017-08-07 09:25] LABS: BASO % 0.7 % (0-2.0); EOS % 1.2 % (0-4.5); HEMATOCRIT 32.4 % (32.4-45.2); HEMOGLOBIN 10.7 GM/dL (10.7-15.3); LYMPH % 18.7 % (8-40); MCH 30.1 pg (25.7-33.7); MEAN CELL VOLUME 91.3 fl (80-96); MEAN PLT VOLUME 6.8 fl (7.5-11.1); MONO % 10.6 % (3.8-10.2); NEUT % 68.8 % (42.8-82.8); PLATELET COUNT 261 K/MM3 (134-434); RBC 3.55 M/mm3 (3.60-5.2); RDW 15.8 % (11.6-15.6); WHITE BLOOD COUNT 8.5 K/mm3 (4.0-10.0)
[2017-08-07 09:46] LABS: ANION GAP 8 (8-16); BLOOD UREA NITROGEN 18 mg/dL (7-18); CALCIUM 8.4 mg/dL (8.5-10.1); CHLORIDE 104 mmol/L (98-107); CO2 27 mmol/L (21-32); CREATININE 0.8 mg/dL (0.55-1.02); GLUCOSE,RANDOM 113 mg/dL (74-106); POTASSIUM 3.9 mmol/L (3.5-5.1); SODIUM 139 mmol/L (136-145)
[2017-08-07] MEDS ORDERED: GABAPENTIN 300 MG CAPSULE (FP) PO SCH ×2 (10:00→22:00)
[2017-08-07] MEDS ORDERED: SERTRALINE HCL 50 MG TABLET (FP) PO SCH (10:00)
[2017-08-07] MEDS: ACETAMINOPHEN 325 MG TABLET (FP) PO PRN ×2 (10:34→16:06)
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
--- NOTE | 2017-08-07 12:33 | PN ---
Teaching Attending Note Name of Resident: Elizabeth Soto ATTENDING PHYSICIAN STATEMENT I saw and evaluated the patient. I reviewed the resident's note and discussed the case with the resident. I agree with the resident's findings and plan as documented. SUBJECTIVE: 27 year old ivdu (heroine) ETOH- at [facility], has competed detox, now in rehab with 4 day history of worsening right had erythema and swelling and pain reports injecting in right forearm but not right hand ?trauma prior history of RLE MRSA abscess requiring incision and drainage in [place] last year history of hep c hiv negative (tested at [facility]) OBJECTIVE: Vital Signs Period Temp Pulse Resp BP Sys/Hoyt Pulse Ox Last 24 Hr 97.6 F-98.9 F 84-110 19-20 90-109/40-76 98-98 cor-rrr lungs clear abd soft,nt ext +erythema and swelling with fluctuance base of right thumb pain on palpation of forearm multiple scars on forearms and RLE CBC, BMP 08/07/17 09:15 08/07/17 09:15 xrays- no foreign body blood cultures pending ASSESSMENT AND PLAN: abscess of the hand needs hand surgery to see MRSA contact isolation vanco/zosyn for now ivdu hep c Problem List - Problems (1) Abscess of right hand Code(s): L02.511 - CUTANEOUS ABSCESS OF RIGHT HAND (2) Opioid dependence Code(s): F11.20 - OPIOID DEPENDENCE, UNCOMPLICATED (3) Hepatitis C Code(s): B19.20 - UNSPECIFIED VIRAL HEPATITIS C WITHOUT HEPATIC COMA
[2017-08-07] MEDS ORDERED: PIPERACILLIN/TAZOB 3.375 GM/50 ML PRE-DOCKED IVPB SCH (13:30)
[2017-08-07] MEDS ORDERED: VANCOMYCIN 1 GRAM (PRE-DOCKED) 1,000 MG/250 ML BAG IVPB SCH (13:30)
[2017-08-07] MEDS ORDERED: chlordiazePOXIDE HCL 25 MG CAPSULE PO PRN (14:08)
[2017-08-07] MEDS ORDERED: DEXTROSE 5%-NORMAL SALINE 1,000 ML IV SCH (14:15)
[2017-08-07] MEDS ORDERED: VANCOMYCIN 1,000 MG in DEXTROSE 5%-WATER - 250 ML IVPB SCH (15:00)
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
[2017-08-07] MEDS ORDERED: NICOTINE 21 MG/24 HOURS TOPICAL PATCH TD SCH (16:15)
[2017-08-07] MEDS ORDERED: NICOTINE POLACRILEX 4 MG GUM BUC PRN (16:26)
[2017-08-07] MEDS ORDERED: NICOTINE POLACRILEX 2 MG GUM BUC PRN (16:29)
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
[2017-08-07] MEDS ORDERED: chlordiazePOXIDE HCL 25 MG CAPSULE PO SCH (17:00)
[2017-08-07] MEDS ORDERED: PIPERACILLIN/TAZOB 3.375 GM 3.375 GM in DEXTROSE 5%-WATER - 100 ML IVPB SCH (18:00)
[2017-08-07] MEDS ORDERED: morphine CARPU-JECT 8 MG/1 ML DISP.SYRIN SQ ONE (18:04)
[2017-08-07] MEDS ORDERED: morphine CARPU-JECT 8 MG/1 ML DISP.SYRIN IVPUSH PRN (18:06)
--- NOTE | 2017-08-07 18:25 | PN ---
Teaching Attending Note Name of Resident: Ish Devine ATTENDING PHYSICIAN STATEMENT Time of evaluation: 11:35 AM I saw and evaluated the patient. I reviewed the resident's note and discussed the case with the resident. I agree with the resident's findings and plan as documented. SUBJECTIVE: Patient seen and examined. Right hand pain, also feels jittery and anxious. subjective fevers/chills. OBJECTIVE: Vital Signs Period Temp Pulse Resp BP Sys/Hoyt Pulse Ox Last 24 Hr 97.6 F-98.9 F 84-112 18-20 90-136/40-82 98-98 Intake & Output 08/04/17 08/05/17 08/06/17 08/07/17 23:59 23:59 23:59 23:59 Intake Total 300 Balance 300 Weight 100 lb 116 lb 1 oz General: sitting in bed, tremulous anxious Extremities: right hand swelling with fluctuation with erythema on dorsum, swelling extending to distal 1/3rd right forearm, positive radial pulses, Positive fine tremors Home Medication List Medication Instructions Recorded Confirmed Type Mirtazapine [Remeron -] 15 mg PO HS 07/31/17 08/07/17 History Active Medications Generic Name Dose Route Start Last Admin Trade Name Freq PRN Reason Stop Dose Admin Acetaminophen 650 mg 08/07/17 09:25 08/07/17 16:06 Tylenol - PO 650 mg Q4H PRN Administration FEVER OR PAIN Buspirone HCl 15 mg 08/07/17 17:00 Buspar - PO BID SHANDA Gabapentin 600 mg 08/07/17 22:00 Neurontin - PO TID SHANDA Piperacillin Sod/Tazobactam 100 mls @ 200 mls/hr 08/07/17 18:00 Sod 3.375 gm/ Dextrose IVPB Q8H-IV SHANDA Vancomycin HCl 1,000 mg/ 250 mls @ 166.667 mls/hr 08/07/17 15:00 08/07/17 16: 13 Dextrose IVPB 166.667 mls/hr BID@1500 SHANDA Administration Dextrose/Sodium Chloride 1,000 mls @ 100 mls/hr 08/07/17 14:15 08/07/17 16:12 D5-Ns - IV 100 mls/hr ASDIR SHANDA Administration Mirtazapine 30 mg 08/07/17 22:00 Remeron - PO HS SHANDA Morphine Sulfate 1 mg 08/07/17 18:06 Morphine Sulfate IVPUSH Q4H PRN PAIN Nicotine 21 mg 08/07/17 16:15 08/07/17 16:44 Nicoderm Patch - TD 21 mg DAILY SHANDA Administration Nicotine Polacrilex 4 mg 08/07/17 16:29 Nicorette Gum - BUC Q2H PRN NICOTINE REPLACEMENT RX Multivit/Folic Acid/Iron 1 tab 08/08/17 10:00 Vitamins (Sjr) - PO DAILY [facility] Quetiapine Fumarate 100 mg 08/07/17 22:00 Seroquel - PO BID SHANDA Senna/Docusate Sodium 2 tablet 08/07/17 22:00 Pericolace - PO 08/08/17 18:15 HS [facility] Sertraline HCl 50 mg 08/07/17 10:00 08/07/17 10:34 Zoloft - PO 50 mg DAILY [facility] Administration Thiamine HCl 100 mg 08/07/17 22:00 Vitamin B1 - PO [facility] Laboratory Results - last 24 hr 08/07/17 08/07/17 08/07/17 00:20 00:20 00:20 WBC 8.9 D RBC 3.58 L Hgb 11.1 Hct 32.2 L MCV 89.9 MCH 31.0 MCHC 34.5 RDW 15.6 Plt Count 265 MPV 7.1 L Absolute Neuts (auto) 6.5 L Absolute Lymphs (auto) 1.5 L Absolute Monos (auto) 0.8 L Absolute Eos (auto) 0.1 Absolute Basos (auto) 0.1 Neutrophils % 73.1 Lymphocytes % 16.7 Monocytes % 8.5 Eosinophils % 0.8 Basophils % 0.9 Sodium 139 Potassium 4.3 Chloride 102 Carbon Dioxide 29 Anion Gap 8 BUN 18 D Creatinine 0.7 Creat Clearance w eGFR > 60 Random Glucose 101 Lactic Acid 1.2 Calcium 9.3 Total Bilirubin 0.4 D AST 65 H D ALT 81 H D Alkaline Phosphatase 100 Total Protein 8.1 Albumin 3.7 Beta HCG, Quant Urine Color Urine Appearance Urine pH Ur Specific [place] Urine Protein Urine Glucose (UA) Urine Ketones Urine Blood Urine Nitrite Urine Bilirubin Urine Urobilinogen Ur Leukocyte Esterase Urine WBC (Auto) Urine RBC (Auto) Ur Epithelial Cells Urine Bacteria 08/07/17 08/07/17 08/07/17 01:30 09:15 09:15 WBC 8.5 RBC 3.55 L Hgb 10.7 Hct 32.4 MCV 91.3 MCH 30.1 MCHC 33.0 RDW 15.8 H Plt Count 261 MPV 6.8 L Absolute Neuts (auto) 5.8 L Absolute Lymphs (auto) 1.6 L Absolute Monos (auto) 0.9 L Absolute Eos (auto) 0.1 Absolute Basos (auto) 0.1 Neutrophils % 68.8 Lymphocytes % 18.7 Monocytes % 10.6 H Eosinophils % 1.2 Basophils % 0.7 Sodium 139 Potassium 3.9 Chloride 104 Carbon Dioxide 27 Anion Gap 8 BUN 18 Creatinine 0.8 Creat Clearance w eGFR Random Glucose 113 H Lactic Acid Calcium 8.4 L Total Bilirubin AST ALT Alkaline Phosphatase Total Protein Albumin Beta HCG, Quant < 1.0 Urine Color Ltyellow Urine Appearance Cloudy Urine pH 7.0 D Ur Specific [place] 1.009 Urine Protein Negative Urine Glucose (UA) Negative Urine Ketones Negative Urine Blood Negative Urine Nitrite Negative Urine Bilirubin Negative Urine Urobilinogen Negative Ur Leukocyte Esterase 1+ H Urine WBC (Auto) 5 Urine RBC (Auto) 2 Ur Epithelial Cells Many Urine Bacteria Rare 08/07/17 12:25 WBC RBC Hgb Hct MCV MCH MCHC RDW Plt Count MPV Absolute Neuts (auto) Absolute Lymphs (auto) Absolute Monos (auto) Absolute Eos (auto) Absolute Basos (auto) Neutrophils % Lymphocytes % Monocytes % Eosinophils % Basophils % Sodium Potassium Chloride Carbon Dioxide Anion Gap BUN Creatinine Creat Clearance w eGFR Random Glucose Lactic Acid Calcium Total Bilirubin AST ALT Alkaline Phosphatase Total Protein Albumin Beta HCG, Quant Cancelled Urine Color Urine Appearance Urine pH Ur Specific [place] Urine Protein Urine Glucose (UA) Urine Ketones Urine Blood Urine Nitrite Urine Bilirubin Urine Urobilinogen Ur Leukocyte Esterase Urine WBC (Auto) Urine RBC (Auto) Ur Epithelial Cells Urine Bacteria ASSESSMENT AND PLAN: 27 yof with polysubstance abuse including ETOH/Heroine, IVDU, Hepatitis C recently in detox, admitted with right hand abscess in the setting of recent IV drug use with sepsis and active drug withdrawal -Right hand abscess with sepsis with recent IV drug use -Active drug withdrawal, ETOH vs heroine related Plan; Surgery consulted with Dr. Hubbard, For I&D today. Follow up cultures. ID input appreciated. zosyn/vancomycin. IVF, Detox consult with Dr. Owen. Place on morphine in per-operative period. Will transition to toradol in 24-48 hours as improving.
[2017-08-07] MEDS: busPIRone HCL 5 MG TABLET PO SCH ×2 (18:35→23:21)
[2017-08-07] MEDS ORDERED: diazePAM CARPU-JECT 10 MG/2 ML DISP.SYRIN IVPUSH ONE (20:05)
[2017-08-07] MEDS ORDERED: MIRTAZAPINE 15 MG TABLET (FP) PO SCH (22:00)
[2017-08-07] MEDS ORDERED: THIAMINE HCL 100 MG TABLET (FP) PO SCH (22:00)
[2017-08-07] MEDS ORDERED: QUEtiapine FUMARATE 100 MG TABLET (FP) PO SCH (22:00)
[2017-08-07] MEDS ORDERED: MIRTAZAPINE 30 MG TABLET (FP) PO SCH (22:00)
[2017-08-07] MEDS ORDERED: CYCLOBENZAPRINE HCL 10 MG TABLET (FP) PO SCH (22:00)
[2017-08-07] MEDS ORDERED: SENNOSIDES/DOCUSATE COMBO (SENNA PLUS) TABLET (UD) PO SCH (22:00)
[2017-08-07] MEDS ORDERED: PROMETHAZINE HCL 25 MG/1 ML VIAL IVPUSH PRN (23:30)
[2017-08-07] MEDS ORDERED: LACTATED RINGERS SOLUTION 1,000 ML IV SCH (23:30)
[2017-08-07] MEDS ORDERED: ONDANSETRON 4 MG/2 ML VIAL IVPUSH PRN (23:30)
[2017-08-07] MEDS ORDERED: MIDAZOLAM HCL 2 MG/2 ML SINGLE DOSE VIAL ONE (23:34)
[2017-08-07] MEDS ORDERED: PROPOFOL 20 ML ONE (23:34)
[2017-08-07] MEDS ORDERED: GLYCOPYRROLATE 0.2 MG/1 ML VIAL ONE (23:35)
[2017-08-07] MEDS ORDERED: LIDOCAINE HCL/PF 2% SDV 5ML VIAL ONE (23:40)
[2017-08-07] MEDS ORDERED: DEXAMETHASONE SOD PHOSPHATE 4 MG/1 ML VIAL ONE (23:46)
[2017-08-07] MEDS ORDERED: KETOROLAC TROMETHAMINE 30 MG/1 ML VIAL ONE (23:57)
[2017-08-08] MEDS ORDERED: IBUPROFEN 600 MG TABLET (FP) PO PRN ×2 (00:17→00:44)
--- NOTE | 2017-08-08 00:27 | OP ---
Operative Note - Note: Operative Date: 08/07/17 Pre-Operative Diagnosis: right hand abscess and compressive median neuropathy Operation: incsion and drainage of right hand dorsal abscess and right carpal tunnel release and medaian nerve neurolysis Findings: right hand dorsal abscess over MCP joint 5ml thick pus, median nerve inflammation Post-Operative Diagnosis: Same as Pre-op Surgeon: Rl Hubbard Anesthesiologist/RECYCLING ASSISTANT: Rk Gregorio Anesthesia: General Specimens Removed: abscess culture Estimated Blood Loss (mls): 2 Fluid Volume Replaced (mls): 200 Operative Report Dictated: Yes
[2017-08-08] MEDS ORDERED: ONDANSETRON 4 MG/2 ML VIAL IVPUSH PRN (00:44)
[2017-08-08] MEDS ORDERED: DEXTROSE 5%-NORMAL SALINE 1,000 ML IV SCH (00:44)
[2017-08-08] MEDS ORDERED: PROMETHAZINE HCL 25 MG/1 ML VIAL IVPUSH PRN (00:44)
[2017-08-08] MEDS ORDERED: morphine SULFATE 4 MG/ML VIAL IVPUSH PRN (02:10)
[2017-08-08] MEDS ORDERED: PT OWN MED DRAWER 7, Y5N ONE ×6 (02:19→18:12)
[2017-08-08] MEDS: PIPERACILLIN/TAZOB 3.375 GM 3.375 GM in DEXTROSE 5%-WATER - 100 ML IVPB SCH ×3 (02:34→19:35)
[2017-08-08] MEDS: VANCOMYCIN 1,000 MG in DEXTROSE 5%-WATER - 250 ML IVPB SCH ×2 (02:34→17:50)
[2017-08-08] MEDS ORDERED: busPIRone HCL 5 MG TABLET PO ONE (03:01)
[2017-08-08] MEDS ORDERED: MIRTAZAPINE 15 MG TABLET (FP) PO ONE (03:04)
[2017-08-08] MEDS ORDERED: QUEtiapine FUMARATE 100 MG TABLET (FP) PO ONE (03:05)
[2017-08-08] MEDS ORDERED: morphine CARPU-JECT 8 MG/1 ML DISP.SYRIN IVPUSH PRN (04:51)
[2017-08-08] MEDS: CYCLOBENZAPRINE HCL 10 MG TABLET (FP) PO SCH ×3 (05:48→22:00)
[2017-08-08] MEDS: GABAPENTIN 300 MG CAPSULE (FP) PO SCH ×3 (05:50→21:59)
[2017-08-08 09:21] LABS: BASO % 0.2 % (0-2.0); EOS % 0.1 % (0-4.5); HEMATOCRIT 33.1 % (32.4-45.2); HEMOGLOBIN 10.9 GM/dL (10.7-15.3); MCH 30.1 pg (25.7-33.7); MEAN CELL VOLUME 91.1 fl (80-96); MEAN PLT VOLUME 6.6 fl (7.5-11.1); MONO % 4.4 % (3.8-10.2); NEUT % 83.3 % (42.8-82.8); PLATELET COUNT 319 K/MM3 (134-434); RBC 3.63 M/mm3 (3.60-5.2); RDW 15.2 % (11.6-15.6); WHITE BLOOD COUNT 7.8 K/mm3 (4.0-10.0)
[2017-08-08] MEDS: SERTRALINE HCL 50 MG TABLET (FP) PO SCH (09:35)
[2017-08-08] MEDS: NICOTINE 21 MG/24 HOURS TOPICAL PATCH TD SCH (09:35)
[2017-08-08] MEDS: QUEtiapine FUMARATE 100 MG TABLET (FP) PO SCH ×2 (09:35→22:00)
[2017-08-08] MEDS: morphine CARPU-JECT 8 MG/1 ML DISP.SYRIN IVPUSH PRN ×3 (09:35→20:39)
[2017-08-08] MEDS: PRENATAL VITAMINS W/ FOLIC ACID TABLET (FP) PO SCH (09:36)
[2017-08-08] MEDS ORDERED: busPIRone HCL 5 MG TABLET PO SCH (10:00)
[2017-08-08] MEDS ORDERED: PRENATAL VITAMINS W/ FOLIC ACID TABLET (FP) PO SCH (10:00)
[2017-08-08 10:04] LABS: BILIRUBIN,TOTAL 0.2 mg/dL (0.2-1.0); CALCIUM 8.8 mg/dL (8.5-10.1); CHLORIDE 107 mmol/L (98-107); POTASSIUM 4.5 mmol/L (3.5-5.1); SGPT/ALT 52 U/L (12-78); SODIUM 141 mmol/L (136-145); TOT PROT 7.6 g/dl (6.4-8.2)
[2017-08-08 10:08] LABS: ALBUMIN 3.1 g/dl (3.4-5.0); ALK PHOS 84 U/L (45-117); ANION GAP 7 (8-16); BLOOD UREA NITROGEN 15 mg/dL (7-18); CO2 27 mmol/L (21-32); CREATININE 0.7 mg/dL (0.55-1.02); GLUCOSE,RANDOM 143 mg/dL (74-106); SGOT/AST 26 U/L (15-37)
--- NOTE | 2017-08-08 10:20 | PN ---
Progress Note (short form) - Note Progress Note: Anesthesia post op note POD#1 S/P I&D of abscess right hand under GA. VSS. No apparent post anesthesia complications. Signed off.
[2017-08-08] MEDS: NICOTINE POLACRILEX 2 MG GUM BUC PRN ×3 (10:43→18:29)
[2017-08-08] MEDS: SODIUM CHLORIDE 1,000 ML IV SCH (12:15)
[2017-08-08] MEDS: busPIRone HCL 5 MG TABLET PO SCH ×2 (13:59→22:46)
[2017-08-08] MEDS: ACETAMINOPHEN 325 MG TABLET (FP) PO PRN ×3 (14:27→22:51)
--- NOTE | 2017-08-08 14:34 | PN ---
Progress Note, Physician History of Present Illness: S/P I&D hand abscess No c/o pain No fever/ chills Cultures pending - Current Medication List Current Medications: Active Medications Acetaminophen (Tylenol -) 650 mg PO Q4H PRN PRN Reason: FEVER OR PAIN Last Admin: 08/08/17 14:27 Dose: 650 mg Buspirone HCl (Buspar -) 15 mg PO TID [facility] Last Admin: 08/08/17 13:59 Dose: 15 mg Cyclobenzaprine HCl (Flexeril -) 10 mg PO TID [facility] Last Admin: 08/08/17 13:04 Dose: 10 mg Gabapentin (Neurontin -) 600 mg PO TID [facility] Last Admin: 08/08/17 13:03 Dose: 600 mg Piperacillin Sod/Tazobactam (Sod 3.375 gm/ Dextrose) 100 mls @ 200 mls/hr IVPB Q8H-IV [facility] Last Admin: 08/08/17 09:34 Dose: 200 mls/hr Vancomycin HCl 1,000 mg/ (Dextrose) 250 mls @ 166.667 mls/hr IVPB BID@0300, 1500 [facility] Last Admin: 08/08/17 02:34 Dose: 166.667 mls/hr Sodium Chloride (Normal Saline -) 1,000 mls @ 100 mls/hr IV ASDIR [facility] Last Admin: 08/08/17 12:15 Dose: 100 mls/hr Ibuprofen (Motrin -) 600 mg PO Q6H PRN PRN Reason: PAIN LEVEL 1-5 Last Admin: 08/08/17 09:57 Dose: 600 mg Mirtazapine (Remeron -) 30 mg PO [facility] Morphine Sulfate (Morphine Sulfate) 1 mg IVPUSH Q4H PRN PRN Reason: PAIN Last Admin: 08/08/17 14:27 Dose: 1 mg Morphine Sulfate (Morphine Sulfate) 1 mg IVPUSH Q4H PRN PRN Reason: PAIN Nicotine (Nicoderm Patch -) 21 mg TD DAILY [facility] Last Admin: 08/08/17 09:35 Dose: 21 mg Nicotine Polacrilex (Nicorette Gum -) 4 mg BUC Q2H PRN PRN Reason: NICOTINE REPLACEMENT RX Last Admin: 08/08/17 13:04 Dose: 4 mg Multivit/Folic Acid/Iron ( Vitamins (Sjr) -) 1 tab PO DAILY [facility] Last Admin: 08/08/17 09:36 Dose: 1 tab Quetiapine Fumarate (Seroquel -) 100 mg PO BID [facility] Last Admin: 08/08/17 09:35 Dose: 100 mg Senna/Docusate Sodium (Pericolace -) 2 tablet PO [facility] Sertraline HCl (Zoloft -) 50 mg PO DAILY [facility] Last Admin: 08/08/17 09:35 Dose: 50 mg Thiamine HCl (Vitamin B1 -) 100 mg PO HS [facility] - Objective Vital Signs: Vital Signs Temperature 97.5 F L 08/08/17 10:00 Pulse Rate 99 H 08/08/17 10:00 Respiratory Rate 18 08/08/17 10:00 Blood Pressure 115/64 08/08/17 10:00 O2 Sat by Pulse Oximetry (%) 100 08/08/17 00:55 Constitutional: Yes: No Distress Eyes: Yes: Conjunctiva Clear Cardiovascular: Yes: Regular Rate and Rhythm, S1, S2 Respiratory: Yes: CTA Bilaterally Gastrointestinal: Yes: Normal Bowel Sounds, Soft Extremities: Yes: Other (Post op dressing in place) Labs: CBC, BMP 08/08/17 08:45 08/08/17 08:45 Assessment/Plan S/P I&D hand abscess Hx MRSA Await c/s Continue empiric vancomycin/ zosyn
--- NOTE | 2017-08-08 15:59 | PN ---
Teaching Attending Note Name of Resident: Perla Ponce ATTENDING PHYSICIAN STATEMENT Time of evaluation: 10:30 PM I saw and evaluated the patient. I reviewed the resident's note and discussed the case with the resident. I agree with the resident's findings and plan as documented. SUBJECTIVE: Patient seen and examined. Right hand symptoms improved, no fevers, chills or new complaints. OBJECTIVE: Vital Signs Period Temp Pulse Resp BP Sys/Hoyt Pulse Ox Last 24 Hr 97.3 F-98.8 F 74-115 16-20 99-130/52-91 100-100 Intake & Output 08/05/17 08/06/17 08/07/17 08/08/17 23:59 23:59 23:59 23:59 Intake Total 1250 750 Output Total 5 Balance 1245 750 Weight 100 lb 116 lb 1 oz 116 lb 14.4 oz General: sleeping in bed in no acute distress CVS:S1S2 regular Extremities: right hand surgical dressing, able to move finger freely Abdomen: soft, NT, ND, positive bowel sounds Home Medication List Medication Instructions Recorded Confirmed Type Mirtazapine [Remeron -] 15 mg PO HS 07/31/17 08/07/17 History Active Medications Generic Name Dose Route Start Last Admin Trade Name Freq PRN Reason Stop Dose Admin Acetaminophen 650 mg 08/08/17 00:44 08/08/17 14:27 Tylenol - PO 650 mg Q4H PRN Administration FEVER OR PAIN Buspirone HCl 15 mg 08/08/17 14:00 08/08/17 13:59 Buspar - PO 15 mg TID SHANDA Administration Cyclobenzaprine HCl 10 mg 08/08/17 06:00 08/08/17 13:04 Flexeril - PO 10 mg TID SHANDA Administration Gabapentin 600 mg 08/08/17 06:00 08/08/17 13:03 Neurontin - PO 600 mg TID SHANDA Administration Piperacillin Sod/Tazobactam 100 mls @ 200 mls/hr 08/08/17 02:00 08/08/17 09: 34 Sod 3.375 gm/ Dextrose IVPB 200 mls/hr Q8H-IV SHANDA Administration Vancomycin HCl 1,000 mg/ 250 mls @ 166.667 mls/hr 08/08/17 03:00 08/08/17 02: 34 Dextrose IVPB 166.667 mls/hr BID@0300,1500 SHANDA Administration Sodium Chloride 1,000 mls @ 100 mls/hr 08/08/17 11:30 08/08/17 12:15 Normal Saline - IV 100 mls/hr ASDIR SHANDA Administration Ibuprofen 600 mg 08/08/17 00:44 08/08/17 09:57 Motrin - PO 600 mg Q6H PRN Administration PAIN LEVEL 1-5 Mirtazapine 30 mg 08/08/17 22:00 Remeron - PO HS SHANDA Morphine Sulfate 1 mg 08/08/17 00:44 08/08/17 14:27 Morphine Sulfate IVPUSH 1 mg Q4H PRN Administration PAIN Morphine Sulfate 1 mg 08/08/17 04:51 Morphine Sulfate IVPUSH Q4H PRN PAIN Nicotine 21 mg 08/08/17 10:00 08/08/17 09:35 Nicoderm Patch - TD 21 mg DAILY SHANDA Administration Nicotine Polacrilex 4 mg 08/08/17 00:44 08/08/17 13:04 Nicorette Gum - BUC 4 mg Q2H PRN Administration NICOTINE REPLACEMENT RX Multivit/Folic Acid/Iron 1 tab 08/08/17 10:00 08/08/17 09:36 Vitamins (Sjr) - PO 1 tab DAILY SHANDA Administration Quetiapine Fumarate 100 mg 08/08/17 10:00 08/08/17 09:35 Seroquel - PO 100 mg BID SHANDA Administration Senna/Docusate Sodium 2 tablet 08/08/17 22:00 Pericolace - PO HS SHANDA Sertraline HCl 50 mg 08/08/17 10:00 08/08/17 09:35 Zoloft - PO 50 mg DAILY SHANDA Administration Thiamine HCl 100 mg 08/08/17 22:00 Vitamin B1 - PO HS [facility] Laboratory Results - last 24 hr 08/08/17 08/08/17 08:45 08:45 WBC 7.8 RBC 3.63 Hgb 10.9 Hct 33.1 MCV 91.1 MCH 30.1 MCHC 33.0 RDW 15.2 Plt Count 319 D MPV 6.6 L Neutrophils % 83.3 H D Lymphocytes % 12.0 D Monocytes % 4.4 Eosinophils % 0.1 D Basophils % 0.2 Sodium 141 Potassium 4.5 Chloride 107 Carbon Dioxide 27 Anion Gap 7 L BUN 15 Creatinine 0.7 Creat Clearance w eGFR > 60 Random Glucose 143 H D Calcium 8.8 Total Bilirubin 0.2 D AST 26 D ALT 52 D Alkaline Phosphatase 84 Total Protein 7.6 Albumin 3.1 L Microbiology 08/07/17 00:30 Blood - Peripheral Venous Blood Culture - Preliminary NO GROWTH OBTAINED AFTER 24 HOURS, INCUBATION TO CONTINUE FOR 4 DAYS. 08/07/17 00:30 Blood - Peripheral Venous Blood Culture - Preliminary NO GROWTH OBTAINED AFTER 24 HOURS, INCUBATION TO CONTINUE FOR 4 DAYS. ASSESSMENT AND PLAN: 27 yof with polysubstance abuse including ETOH/Heroine, IVDU, Hepatitis C recently in detox, admitted with right hand abscess in the setting of recent IV drug use with sepsis and active drug withdrawal -Right hand abscess with sepsis with recent IV drug use -Active drug withdrawal, ETOH vs heroine related Plan; sp I&D 08/07, doing well ID input appreciated. zosyn/vancomycin day 2, check vanco level before 4th dose. IVF, Detox consult with Dr. Owen. Place on morphine in per-operative period. Will transition to toradol in 24-48 hours as improving. Dispo pending surgical input, cultures and clinical improvement.
--- NOTE | 2017-08-08 16:22 | EKG ---
Test Reason : Blood Pressure : / mmHG Vent. Rate : 098 BPM Atrial Rate : 098 BPM P-R Int : 120 ms QRS Dur : 082 ms QT Int : 362 ms P-R-T Axes : 063 053 038 degrees QTc Int : 462 ms NORMAL SINUS RHYTHM NORMAL ECG WHEN COMPARED WITH ECG OF 31-JUL-2017 19:37, NO SIGNIFICANT CHANGE WAS FOUND Confirmed by JUSTIN HUI MD ([id number]) on 08/08/2017 4:22:51 PM Referred By: Marichuy MARTINEZ Confirmed By:JUSTIN HUI MD
[2017-08-08] MEDS ORDERED: chlordiazePOXIDE HCL 25 MG CAPSULE PO SCH (17:00)
--- NOTE | 2017-08-08 21:06 | PN ---
Physical Exam: SUBJECTIVE: Patient seen and examined. She is feeling good today, complaining of mild hand pain, no overnight events. OBJECTIVE: Vital Signs Period Temp Pulse Resp BP Sys/Hoyt Pulse Ox Last 24 Hr 97.3 F-98.8 F 74-115 16-20 99-133/52-91 99-100 GENERAL: The patient is awake, alert, and fully oriented, in no acute distress. HEAD: Normal with no signs of trauma. EYES: extraocular movements intact, sclera anicteric, conjunctiva clear. ENT: oropharynx clear without exudates, moist mucous membranes. NECK: Trachea midline, supple. LUNGS: Breath sounds equal, clear to auscultation bilaterally, no wheezes, no crackles, no accessory muscle use. HEART: Regular rate and rhythm, S1, S2 without murmur, rub or gallop. ABDOMEN: Soft, nontender, nondistended, normoactive bowel sounds, no guarding, no rebound, no hepatosplenomegaly, no masses. EXTREMITIES: no edema, dressing applied in RUE. NEUROLOGICAL: Normal speech, gait not observed. PSYCH: Normal mood, normal affect. SKIN: Warm, dry, normal turgor, no rashes. Laboratory Results - last 24 hr 08/08/17 08/08/17 08:45 08:45 WBC 7.8 RBC 3.63 Hgb 10.9 Hct 33.1 MCV 91.1 MCH 30.1 MCHC 33.0 RDW 15.2 Plt Count 319 D MPV 6.6 L Neutrophils % 83.3 H D Lymphocytes % 12.0 D Monocytes % 4.4 Eosinophils % 0.1 D Basophils % 0.2 Sodium 141 Potassium 4.5 Chloride 107 Carbon Dioxide 27 Anion Gap 7 L BUN 15 Creatinine 0.7 Creat Clearance w eGFR > 60 Random Glucose 143 H D Calcium 8.8 Total Bilirubin 0.2 D AST 26 D ALT 52 D Alkaline Phosphatase 84 Total Protein 7.6 Albumin 3.1 L Active Medications Generic Name Dose Route Start Last Admin Trade Name Freq PRN Reason Stop Dose Admin Acetaminophen 650 mg 08/08/17 00:44 08/08/17 17:49 Tylenol - PO 650 mg Q4H PRN Administration FEVER OR PAIN Buspirone HCl 15 mg 08/08/17 14:00 08/08/17 13:59 Buspar - PO 15 mg TID SHANDA Administration Cyclobenzaprine HCl 10 mg 08/08/17 06:00 08/08/17 13:04 Flexeril - PO 10 mg TID SHANDA Administration Gabapentin 600 mg 08/08/17 06:00 08/08/17 13:03 Neurontin - PO 600 mg TID SHANDA Administration Piperacillin Sod/Tazobactam 100 mls @ 200 mls/hr 08/08/17 02:00 08/08/17 19: 35 Sod 3.375 gm/ Dextrose IVPB 200 mls/hr Q8H-IV SHANDA Administration Vancomycin HCl 1,000 mg/ 250 mls @ 166.667 mls/hr 08/08/17 03:00 08/08/17 17: 50 Dextrose IVPB 166.667 mls/hr BID@0300,1500 SHANDA Administration Sodium Chloride 1,000 mls @ 100 mls/hr 08/08/17 11:30 08/08/17 12:15 Normal Saline - IV 100 mls/hr ASDIR SHANDA Administration Ibuprofen 600 mg 08/08/17 00:44 08/08/17 09:57 Motrin - PO 600 mg Q6H PRN Administration PAIN LEVEL 1-5 Mirtazapine 30 mg 08/08/17 22:00 Remeron - PO HS [facility] Morphine Sulfate 1 mg 08/08/17 00:44 08/08/17 20:39 Morphine Sulfate IVPUSH 1 mg Q4H PRN Administration PAIN Morphine Sulfate 1 mg 08/08/17 04:51 08/08/17 17:49 Morphine Sulfate IVPUSH 1 mg Q4H PRN Administration PAIN Nicotine 21 mg 08/08/17 10:00 08/08/17 09:35 Nicoderm Patch - TD 21 mg DAILY SHANDA Administration Nicotine Polacrilex 4 mg 08/08/17 00:44 08/08/17 18:29 Nicorette Gum - BUC 4 mg Q2H PRN Administration NICOTINE REPLACEMENT RX Multivit/Folic Acid/Iron 1 tab 08/08/17 10:00 08/08/17 09:36 Vitamins (Sjr) - PO 1 tab DAILY SHANDA Administration Quetiapine Fumarate 100 mg 08/08/17 10:00 08/08/17 09:35 Seroquel - PO 100 mg BID SHANDA Administration Senna/Docusate Sodium 2 tablet 08/08/17 22:00 Pericolace - PO HS SHANDA Sertraline HCl 50 mg 08/08/17 10:00 08/08/17 09:35 Zoloft - PO 50 mg DAILY SHANDA Administration Thiamine HCl 100 mg 08/08/17 22:00 Vitamin B1 - PO HS [facility] ASSESSMENT/PLAN: 27 yo woman w/ Hep C, IVDU, Bipolar disorder who presents to ED from [facility] with 4 days of worsening R hand swelling/pain following traumatic injury to hand.She was admitted for RUE abscess. Right hand abscess: continue Vancomycin and Zosyn s/p I&D under general anesthesia, 5 ml pus removed ID consulted blood culture- no growth Tylenol 650mg Q4h PRN for pain control no fever in 24 h, no WBC alcohol dependance -consulted Dr. Owen - Monitor for signs of withdrawal Nicotine dependence - Nicoderm patch - Nicorette gum GERD - Protonix 40mg qD PTSD/Bipolar/Depression Continue home psych meds Hep C - Outpt GI f/u Chronic back pain - Continue flexeril PPX Heparin SubQ FEN PO hydration Daily BMPs, no abnormalities Regular diet Dispo: continue med surg monitoring Problem List - Problems (1) Abscess of right hand Code(s): L02.511 - CUTANEOUS ABSCESS OF RIGHT HAND (2) Hepatitis C Code(s): B19.20 - UNSPECIFIED VIRAL HEPATITIS C WITHOUT HEPATIC COMA (3) Cocaine dependence, uncomplicated Code(s): F14.20 - COCAINE DEPENDENCE, UNCOMPLICATED (4) Substance induced mood disorder Code(s): F19.94 - OTH PSYCHOACTIVE SUBSTANCE USE, UNSP W MOOD DISORDER (5) Alcohol dependence Code(s): F10.20 - ALCOHOL DEPENDENCE, UNCOMPLICATED (6) Bipolar II disorder Code(s): F31.81 - BIPOLAR II DISORDER (7) Opioid dependence Code(s): F11.20 - OPIOID DEPENDENCE, UNCOMPLICATED Visit type - Emergency Visit Emergency Visit: Yes ED Registration Date: 08/07/17 Care time: The patient presented to the Emergency Department on the above date and was hospitalized for further evaluation of their emergent condition. - New Patient This patient is new to me today: Yes Date on this admission: 08/09/17 - Critical Care Critical Care patient: No - Discharge Referral Referred to [facility] Med P.C.: No
[2017-08-08] MEDS ORDERED: MIRTAZAPINE 15 MG TABLET (FP) ONE (21:56)
[2017-08-08] MEDS: SENNOSIDES/DOCUSATE COMBO (SENNA PLUS) TABLET (UD) PO SCH (22:00)
[2017-08-08] MEDS: MIRTAZAPINE 30 MG TABLET (FP) PO SCH (22:00)
[2017-08-08] MEDS: THIAMINE HCL 100 MG TABLET (FP) PO SCH (22:00)
[2017-08-09] MEDS ORDERED: PT OWN MED DRAWER 7, Y5N ONE ×9 (00:12→21:33)
[2017-08-09] MEDS: PIPERACILLIN/TAZOB 3.375 GM 3.375 GM in DEXTROSE 5%-WATER - 100 ML IVPB SCH ×3 (01:55→18:26)
[2017-08-09] MEDS: VANCOMYCIN 1,000 MG in DEXTROSE 5%-WATER - 250 ML IVPB SCH ×2 (03:50→16:33)
[2017-08-09] MEDS: GABAPENTIN 300 MG CAPSULE (FP) PO SCH ×3 (05:59→22:54)
[2017-08-09] MEDS: busPIRone HCL 5 MG TABLET PO SCH ×3 (05:59→22:53)
[2017-08-09] MEDS: CYCLOBENZAPRINE HCL 10 MG TABLET (FP) PO SCH ×3 (05:59→22:54)
[2017-08-09] MEDS: SODIUM CHLORIDE 1,000 ML IV SCH ×2 (06:52→11:53)
[2017-08-09 08:13] LABS: BASO % 0.8 % (0-2.0); EOS % 2.1 % (0-4.5); HEMATOCRIT 31.8 % (32.4-45.2); HEMOGLOBIN 10.5 GM/dL (10.7-15.3); LYMPH % 46.2 % (8-40); MCH 30.1 pg (25.7-33.7); MCHC 32.9 g/dl (32.0-36.0); MEAN CELL VOLUME 91.4 fl (80-96); MEAN PLT VOLUME 6.7 fl (7.5-11.1); MONO % 9.2 % (3.8-10.2); NEUT % 41.7 % (42.8-82.8); PLATELET COUNT 265 K/MM3 (134-434); RBC 3.48 M/mm3 (3.60-5.2); RDW 15.5 % (11.6-15.6); WHITE BLOOD COUNT 5.8 K/mm3 (4.0-10.0)
[2017-08-09] MEDS ORDERED: morphine CARPU-JECT 4 MG/1 ML DISP.SYRIN IVPUSH PRN (08:37)
[2017-08-09 08:47] LABS: ALBUMIN 2.7 g/dl (3.4-5.0); ANION GAP 7 (8-16); BLOOD UREA NITROGEN 14 mg/dL (7-18); CALCIUM 8.2 mg/dL (8.5-10.1); CHLORIDE 109 mmol/L (98-107); CO2 25 mmol/L (21-32); CREATININE 0.8 mg/dL (0.55-1.02); GLUCOSE,RANDOM 85 mg/dL (74-106); POTASSIUM 4.2 mmol/L (3.5-5.1); SGOT/AST 16 U/L (15-37); SGPT/ALT 38 U/L (12-78); SODIUM 141 mmol/L (136-145)
[2017-08-09 08:48] LABS: ALK PHOS 68 U/L (45-117); BILIRUBIN,TOTAL 0.3 mg/dL (0.2-1.0); TOT PROT 6.8 g/dl (6.4-8.2)
[2017-08-09] MEDS: QUEtiapine FUMARATE 100 MG TABLET (FP) PO SCH ×2 (09:57→22:54)
[2017-08-09] MEDS: PRENATAL VITAMINS W/ FOLIC ACID TABLET (FP) PO SCH (09:57)
[2017-08-09] MEDS: NICOTINE 21 MG/24 HOURS TOPICAL PATCH TD SCH (09:57)
[2017-08-09] MEDS: SERTRALINE HCL 50 MG TABLET (FP) PO SCH (09:57)
[2017-08-09] MEDS ORDERED: morphine SULFATE 4 MG/ML VIAL IVPUSH PRN (10:09)
[2017-08-09] MEDS: IBUPROFEN 600 MG TABLET (FP) PO PRN ×2 (10:18→16:19)
[2017-08-09] MEDS: ACETAMINOPHEN 325 MG TABLET (FP) PO PRN ×2 (10:18→16:18)
[2017-08-09] MEDS: morphine CARPU-JECT 8 MG/1 ML DISP.SYRIN IVPUSH PRN (10:19)
[2017-08-09] MEDS ORDERED: morphine CARPU-JECT 8 MG/1 ML DISP.SYRIN IVPUSH PRN (15:28)
--- NOTE | 2017-08-09 15:28 | PN ---
Teaching Attending Note ATTENDING PHYSICIAN STATEMENT I saw and evaluated the patient. I reviewed the resident's note and discussed the case with the resident. I agree with the resident's findings and plan as documented. SUBJECTIVE: OBJECTIVE: ASSESSMENT AND PLAN:
--- NOTE | 2017-08-09 15:34 | PN ---
Teaching Attending Note Name of Resident: . ATTENDING PHYSICIAN STATEMENT Time of evaluation: 11:55 AM SUBJECTIVE: Patient seen and examined, right hand pain but improved, no other complaints., no fevers/chills noted. OBJECTIVE: Vital Signs Period Temp Pulse Resp BP Sys/Hoyt Pulse Ox Last 24 Hr 97.8 F-98.4 F 79-104 18-20 96-133/58-73 99-99 Intake & Output 08/06/17 08/07/17 08/08/17 08/09/17 23:59 23:59 23:59 23:59 Intake Total 1250 3700 1900 Output Total 5 Balance 1245 3700 1900 Weight 100 lb 116 lb 1 oz 116 lb 14.4 oz 116 lb 9.6 oz General: sitting in bed in no acute distress Extremities; right hand dressing, no surrounding erythema noted, able to move right fingers, patient deferred dressing removal as wanted to do it with surgeon today Abdomen: soft, NT, nD Chest: CTAB, no rales or wheezing Home Medication List Medication Instructions Recorded Confirmed Type Mirtazapine [Remeron -] 15 mg PO HS 07/31/17 08/07/17 History Active Medications Generic Name Dose Route Start Last Admin Trade Name Freq PRN Reason Stop Dose Admin Acetaminophen 650 mg 08/09/17 08:37 08/09/17 10:18 Tylenol - PO 650 mg Q4H PRN Administration FEVER OR PAIN Buspirone HCl 15 mg 08/08/17 14:00 08/09/17 14:49 Buspar - PO 15 mg TID SHANDA Administration Cyclobenzaprine HCl 10 mg 08/08/17 06:00 08/09/17 14:49 Flexeril - PO 10 mg TID SHANDA Administration Gabapentin 600 mg 08/08/17 06:00 08/09/17 14:49 Neurontin - PO 600 mg TID SHANDA Administration Piperacillin Sod/Tazobactam 100 mls @ 200 mls/hr 08/08/17 02:00 08/09/17 09: 56 Sod 3.375 gm/ Dextrose IVPB 200 mls/hr Q8H-IV SHANDA Administration Vancomycin HCl 1,000 mg/ 250 mls @ 166.667 mls/hr 08/08/17 03:00 08/09/17 03: 50 Dextrose IVPB 166.667 mls/hr BID@0300,1500 SHANDA Administration Sodium Chloride 1,000 mls @ 100 mls/hr 08/08/17 11:30 08/09/17 11:53 Normal Saline - IV Not Given ASDIR SHANDA Ibuprofen 600 mg 08/09/17 08:37 08/09/17 10:18 Motrin - PO 600 mg Q6H PRN Administration PAIN Mirtazapine 30 mg 08/08/17 22:00 08/08/17 22:00 Remeron - PO 30 mg HS SHANDA Administration Morphine Sulfate 0.5 mg 08/09/17 15:28 Morphine Sulfate IVPUSH Q6H PRN PAIN Nicotine 21 mg 08/08/17 10:00 08/09/17 09:57 Nicoderm Patch - TD 21 mg DAILY SHANDA Administration Nicotine Polacrilex 4 mg 08/08/17 00:44 08/08/17 18:29 Nicorette Gum - BUC 4 mg Q2H PRN Administration NICOTINE REPLACEMENT RX Multivit/Folic Acid/Iron 1 tab 08/08/17 10:00 08/09/17 09:57 Vitamins (Sjr) - PO 1 tab DAILY SHANDA Administration Quetiapine Fumarate 100 mg 08/08/17 10:00 08/09/17 09:57 Seroquel - PO 100 mg BID SHANDA Administration Senna/Docusate Sodium 2 tablet 08/08/17 22:00 08/08/17 22:00 Pericolace - PO 2 tablet HS SHANDA Administration Sertraline HCl 50 mg 08/08/17 10:00 08/09/17 09:57 Zoloft - PO 50 mg DAILY SHANDA Administration Thiamine HCl 100 mg 08/08/17 22:00 08/08/17 22:00 Vitamin B1 - PO 100 mg HS SHANDA Administration Laboratory Results - last 24 hr 08/09/17 08/09/17 06:50 06:50 WBC 5.8 RBC 3.48 L Hgb 10.5 L Hct 31.8 L MCV 91.4 MCH 30.1 MCHC 32.9 RDW 15.5 Plt Count 265 MPV 6.7 L Neutrophils % 41.7 L D Lymphocytes % 46.2 H D Monocytes % 9.2 D Eosinophils % 2.1 D Basophils % 0.8 D Sodium 141 Potassium 4.2 Chloride 109 H Carbon Dioxide 25 Anion Gap 7 L BUN 14 Creatinine 0.8 Creat Clearance w eGFR > 60 Random Glucose 85 D Calcium 8.2 L Total Bilirubin 0.3 D AST 16 D ALT 38 D Alkaline Phosphatase 68 Total Protein 6.8 Albumin 2.7 L Microbiology 08/09/17 10:30 Hand - Right Gram Stain - Final 08/07/17 00:30 Blood - Peripheral Venous Blood Culture - Preliminary NO GROWTH OBTAINED AFTER 48 HOURS, INCUBATION TO CONTINUE FOR 3 DAYS. 08/07/17 00:30 Blood - Peripheral Venous Blood Culture - Preliminary NO GROWTH OBTAINED AFTER 48 HOURS, INCUBATION TO CONTINUE FOR 3 DAYS. ASSESSMENT AND PLAN: 27 yof with polysubstance abuse including ETOH/Heroine, IVDU, Hepatitis C recently in detox, admitted with right hand abscess in the setting of recent IV drug use with sepsis and active drug withdrawal -Right hand abscess with sepsis with recent IV drug use -ETOH/heroine abuse Plan; sp I&D 08/07, doing well Wound gm stain with GP in clusters, follow up culturse. ID input appreciated. zosyn/vancomycin day 3, check vanco level before 4th dose sent now, will follow up, further dosing accordingly. IVF, Detox consult with Dr. Owen. taper morphine to off in [address] hours[address] discuss with Dr. Owen for further detox regimen. Declined drug screen with RN. Patient with no concerning withdrawal symptoms now, recently finished detox. Dispo pending surgical input, cultures and clinical improvement.
[2017-08-09] MEDS ORDERED: chlordiazePOXIDE 5 MG CAPSULE PO SCH (17:00)
--- NOTE | 2017-08-09 17:12 | PN ---
Progress Note (short form) - Note Progress Note: covering for Dr. Hubbard Pt feeling well. Able to write a bit with right hand. Pain less and controlled with prn meds. Has elevated as much as possible. Vital Signs Period Temp Pulse Resp BP Sys/Hoyt Pulse Ox Last 24 Hr 97.8 F-98.4 F 79-104 18-20 96-130/58-73 99-99 PE: right hand dressing dry and intact - removed has partial flexion of all fingers and thumb, slightly more strength than yesterday partial thumbs-up, partial fist, fair to good floral assistant, better than yesterday volar wrist incision with sutures, c/d/i dorsal wound with packing removed, some serosang drainage on strip, scant thin yellow exudate, no melinda purulence wound pink, cleaning up, irrigated with saline repacked with short length of iodoform, covered with gauze and Kerlix wrap pt tolerated well without pain medication CBC, BMP 08/09/17 06:50 08/09/17 06:50 Microbiology 08/09/17 10:30 Gram Stain - Final Hand - Right 08/07/17 00:30 Blood Culture - Preliminary Blood - Peripheral Venous NO GROWTH OBTAINED AFTER 48 HOURS, INCUBATION TO CONTINUE FOR 3 DAYS. 08/07/17 00:30 Blood Culture - Preliminary Blood - Peripheral Venous NO GROWTH OBTAINED AFTER 48 HOURS, INCUBATION TO CONTINUE FOR 3 DAYS. GS with [facility] in clusters, PMNs A/P: POD2 s/p I&D right hand abscess with carpal tunnel release for median neuropathy dressing changed - continue daily elevate hand as able antibiotics per ID, awaiting culture results doing well overall Problem List - Problems (1) Abscess of right hand Code(s): L02.511 - CUTANEOUS ABSCESS OF RIGHT HAND (2) Carpal tunnel syndrome on right Code(s): G56.01 - CARPAL TUNNEL SYNDROME, RIGHT UPPER LIMB (3) Hepatitis C Code(s): B19.20 - UNSPECIFIED VIRAL HEPATITIS C WITHOUT HEPATIC COMA Qualifiers: Viral hepatitis chronicity: unspecified Hepatic coma status: without hepatic coma Qualified Code(s): B19.20 - Unspecified viral hepatitis C without hepatic coma (4) Cocaine dependence, uncomplicated Code(s): F14.20 - COCAINE DEPENDENCE, UNCOMPLICATED (5) Sedative dependence Code(s): F13.20 - SEDATIVE, HYPNOTIC OR ANXIOLYTIC DEPENDENCE, UNCOMPLICATED (6) Alcohol dependence Code(s): F10.20 - ALCOHOL DEPENDENCE, UNCOMPLICATED Qualifiers: Substance use status: uncomplicated Qualified Code(s): F10.20 - Alcohol dependence, uncomplicated (7) Bipolar disorder Code(s): F31.9 - BIPOLAR DISORDER, UNSPECIFIED Qualifiers: Active/Remission status: remission status unspecified Qualified Code(s): F31.9 - Bipolar disorder, unspecified (8) Cannabis dependence Code(s): F12.20 - CANNABIS DEPENDENCE, UNCOMPLICATED (9) Nicotine dependence Code(s): F17.200 - NICOTINE DEPENDENCE, UNSPECIFIED, UNCOMPLICATED Qualifiers: Nicotine product type: cigarettes Substance use status: uncomplicated Qualified Code(s): F17.210 - Nicotine dependence, cigarettes, uncomplicated (10) Opioid dependence with withdrawal Code(s): F11.23 - OPIOID DEPENDENCE WITH WITHDRAWAL (11) PTSD (post-traumatic stress disorder) Code(s): F43.10 - POST-TRAUMATIC STRESS DISORDER, UNSPECIFIED
[2017-08-09 17:16] VITALS: BP 121/52; PULSE 100; TEMP 98.1
[2017-08-09] MEDS ORDERED: MIRTAZAPINE 15 MG TABLET (FP) ONE (21:31)
[2017-08-09] MEDS: SENNOSIDES/DOCUSATE COMBO (SENNA PLUS) TABLET (UD) PO SCH (22:54)
[2017-08-09] MEDS: MIRTAZAPINE 30 MG TABLET (FP) PO SCH (22:54)
[2017-08-09] MEDS: THIAMINE HCL 100 MG TABLET (FP) PO SCH (22:54)
--- NOTE | 2017-08-10 02:13 | HOSP ---
Physical Examination Vital Signs: Vital Signs Temperature 98.1 F 08/09/17 17:16 Pulse Rate 100 H 08/09/17 17:16 Respiratory Rate 20 08/09/17 17:16 Blood Pressure 121/52 08/09/17 17:16 O2 Sat by Pulse Oximetry (%) 100 08/09/17 21:00 Labs: CBC, BMP 08/09/17 06:50 08/09/17 06:50 Hospitalist Encounter Assessment: Patient decide to levae against medical advice. I expalined to her risk and disadvantges of leaving without finishing treatment including developing septic shock and . Patient is AAOX3 and with full of capacity and decide to leave. Beau Gómez MD PGY1 Visit type - Emergency Visit Emergency Visit: Yes ED Registration Date: 08/07/17 Care time: The patient presented to the Emergency Department on the above date and was hospitalized for further evaluation of their emergent condition. - New Patient This patient is new to me today: No - Critical Care Critical Care patient: No
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
--- NOTE | 2017-08-14 12:41 | PN ---
Problem List - Problems (1) Abscess of right hand Code(s): L02.511 - CUTANEOUS ABSCESS OF RIGHT HAND (2) Opioid dependence Code(s): F11.20 - OPIOID DEPENDENCE, UNCOMPLICATED (3) Hepatitis C Code(s): B19.20 - UNSPECIFIED VIRAL HEPATITIS C WITHOUT HEPATIC COMA Qualifiers: Viral hepatitis chronicity: unspecified Hepatic coma status: without hepatic coma Qualified Code(s): B19.20 - Unspecified viral hepatitis C without hepatic coma
== END 2017-08-09 10:30 | disposition left against medical advice (07) | DRG 952 ==
LOC: JER 23:09 → JERBED 08-07 02:54 → J6S 08-07 03:41 → J8W 08-07 19:07
PROVIDERS: ADMIT Internal Medicine; ATTEND Hospitalist
PROC: 0X9J0ZX Drainage of Right Hand, Open Approach, Diagnostic (ICD-10-PCS; 2017-08-07)
PROC: 01N50ZZ Release Median Nerve, Open Approach (ICD-10-PCS; principal; 2017-08-07 16:00)
DX: L03.113 Cellulitis of right upper limb (principal); G56.01 Carpal tunnel syndrome, right upper limb; K21.9 Gastro-esophageal reflux disease without esophagitis; F17.210 Nicotine dependence, cigarettes, uncomplicated; F31.9 Bipolar disorder, unspecified; M54.9 Dorsalgia, unspecified; F14.20 Cocaine dependence, uncomplicated; F13.20 Sedative, hypnotic or anxiolytic dependence, uncomplicated; F10.20 Alcohol dependence, uncomplicated; F43.10 Post-traumatic stress disorder, unspecified
CPT/HCPCS: 36415; 71020-TC; 73090-TC-RT; 73130-TC-RT; 80048; 80053; 81003; 81015; 83605; 84702; 85025; 87040; 87070; 87186; 87205; 93005; 93010; 94760; 99283-25; G0480